=== PATIENT | female | born 1935 | race Asian ===

== ENCOUNTER → 2017-01-03 | Outpatient (CLI) | payer BC ==
[~2017-01-03] MED LIST: ASPCH81X PO; CHOL100010 PO; COEN1CAP7 PO; GLUC1TAB8 PO; MAGN250T22 PO; MULT-506 PO; OMEG10007 PO
== END | disposition home or self-care (01) ==
LOC: C.RDSM 13:03
PROVIDERS: ATTEND Physical Medicine & Rehabilitation
DX: M54.5 Low back pain (principal)

== ENCOUNTER → 2017-01-06 | Outpatient (CLI) | payer BC ==
--- NOTE | 2017-01-06 14:05 | MAMMOGRAPHY REPORT ---
BILATERAL DIGITAL SCREENING MAMMOGRAM WITH CAD: 01/06/2017 CLINICAL HISTORY: Routine screening. Patient has no complaints. TECHNIQUE: Bilateral CC and MLO views were obtained. Current study was also evaluated with a Compute r Aided Detection (CAD) system. COMPARISON: Comparison is made to exams dated: 01/05/2016 mammogram, 01/02/2015 mammogram, 08/03/2013 m ammogram, 02/01/2013 ultrasound, 02/01/2013 mammogram, and 01/21/2013 mammogram - [facility]. BREAST COMPOSITION: The tissue of both breasts is heterogeneously dense, which may obscure small mas ses. FINDINGS: The parenchymal pattern is unchanged. No developing mass, architectural distortion or clus ter of suspicious microcalcifications is seen in either breast. IMPRESSION: ACR BI-RADS CATEGORY 2: BENIGN There is no mammographic evidence of malignancy. A 1 year screening mammogram is recommended. The pa tient will receive written notification of the results. Approximately 10% of breast cancers are not detected with mammography. A negative mammographic report should not delay biopsy if a clinically suggestive mass is present. Alanna Llamas M.D. ay/:01/06/2017 12:02:02 Ceramic Engineer: Zakiya GARCIA(Hitesh)(M), [facility] letter sent: Normal 1/2 BI-RADS Code: ACR BI-RADS Category 2: Benign
== END | disposition home or self-care (01) ==
LOC: C.MAMM 11:26
PROVIDERS: ATTEND Family Medicine
DX: Z12.31 Encounter for screening mammogram for malignant neoplasm of breast (principal)

== ENCOUNTER → 2017-02-27 | Day surgery (SDC) | payer BC ==
[2017-02-20 08:59] VITALS: Ht 157.5 cm; Wt 61.4 kg
[~2017-02-27] VITALS: Ht 157.5 cm; Wt 61.4 kg
[~2017-02-27] MED LIST changes: +IOPAMIDOL INJ 61% 15 ML VIAL ONE; +LIDOCAINE HCL 1% MPF 5 ML VIAL ONE; +SODIUM CHLORIDE 0.9% INJ 10 ML VIAL ONE
[2017-02-27 12:34] VITALS: TEMP 36.6
--- NOTE | 2017-02-27 12:59 | History & Physical Bridge - [place] ---
H&P Re-Evaluation Bridge Note: I have examined the patient, reviewed the History & Physical and in the interval since the performance of the History & Physical I have noted the following changes of clinical significance: No changes noted
--- NOTE | 2017-02-27 13:27 | Discharge Instructions ---
Discharge Instructions Date of Service Feb 27, 2017. Visit Reason for Visit: Lumbar Radiculopathy Discharge Discharge Diagnosis / Problem: left leg pain Discharge Goals Goal(s): Decrease discomfort, Improve function Activity Recommendations Activity Limitations: resume your previous activity Anesthesia . Post Anesthesia Instructions: If you have had General Anesthesia or IV Sedation: * Do not drive today. * Resume driving when surgeon permits. * Do not make important decisions or sign legal documents today. * Call surgeon for: 1. Temperature elevations greater than 101 degrees F. 2. Uncontrollable pain. 3. Excessive bleeding. 4. Persistent nausea and vomiting. 5. Medication intolerance (nausea, vomiting or rash). * For nausea and vomiting use only clear liquids such as: tea, soda, bouillon until nausea subsides, then gradually increase diet as tolerated. * If you have any concerns or questions, call your surgeon's office. If physician is unavailable and it is an emergency, call 911 or go to the nearest emergency room. . Diet Recommendations Recommended Home Diet: no limitations Procedures Procedures Performed: CAUDAL STERIOD INJECTION Pending Studies Studies pending at discharge: no Medical Emergencies . Who to Call and When: Medical Emergencies: If at any time you feel your situation is an emergency, please call 911 immediately. . Non-Emergent Contact Non-Emergency issues call your: Specialist . . "Provider Documentation" section prepared by Jamey Pan. .
[2017-02-27 13:41] VITALS: BP 193/82; PULSE 60; O2SAT 98
--- NOTE | 2017-02-27 14:10 | OPERATIVE REPORT ---
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 POSTOPERATIVE DIAGNOSIS: Same. PROCEDURE: Caudal epidural steroid injection under fluoroscopic guidance. INDICATIONS: The patient is an 81-year-old French female who presents today for an epidural steroid injection. She has not responded to conservative treatments and continues to have radicular pain that is functionally limiting to her. She presents today for an epidural injection and was scheduled for an intralaminar approach. However, she did not stop her aspirin and that will be done via a caudal approach to reduce the risk of an epidural hematoma. PHYSICAL EXAMINATION: GENERAL: Pleasant female seated comfortably in no apparent distress. MUSCULOSKELETAL: She has some sciatic notch sensitivity on the left. Sensation was subjectively increased in the left L5 and S1 dermatomes with negative seated straight leg raises. CONSENT: Verbal and written consent was obtained from the patient. Risks and benefits were reviewed. Risks include but are not limited to epidural abscess and allergic reaction. The patient wishes to proceed. PROCEDURE IN DETAIL: The patient was taken back to the special procedures room of [facility] where she was maintained in a prone position. Backside was cleansed with Betadine x3 and a dry sterile dressing was applied. Fluoroscope was used to identify the sacral hiatus and the overlying skin was anesthetized with 2.5 mL of lidocaine 1% with a 25 gauge 1.5-inch needle. A 25 gauge 3.5-inch needle was placed easily, entering the hiatus and advanced along the sacral canal. She then underwent injection after negative aspiration of 40 mg of Depo-Medrol and 4 mL of preservative free sodium chloride. Injection was well tolerated. DISPOSITION: 1. The patient is taken out into the discharge recovery area, where she will be discharged home once discharge criteria have been met. 2. Follow up in the [facility] office in 2-4 weeks. I attest to the content of the Intraoperative Record and any orders documented therein. Any exception s are noted below.
== END | disposition home or self-care (01) ==
LOC: X.SURG 12:08
PROVIDERS: ATTEND Physical Medicine & Rehabilitation
DX: M99.53 Intervertebral disc stenosis of neural canal of lumbar region (principal); M54.5 Low back pain

== ENCOUNTER 2017-08-27 11:43 | Inpatient (IN) | payer BC, OTHER ==
[~2017-08-27] VITALS: Ht 162.6 cm; Wt 62.1 kg
[~2017-08-27 11:43] MED LIST changes: -IOPAMIDOL INJ 61% 15 ML VIAL ONE; -LIDOCAINE HCL 1% MPF 5 ML VIAL ONE; -SODIUM CHLORIDE 0.9% INJ 10 ML VIAL ONE
[2017-08-27 12:10] LABS: BASO % 0.6 %; BASO ABS # 0.03 K/uL (0-0.2); EOS % 0.8 %; EOS ABS # 0.04 K/uL (0-0.5); HEMATOCRIT 38.3 % (37-47); HEMOGLOBIN 13.3 g/dL (12.0-16.0); IG# 0.01 K/uL (0.00-0.02); LYMPH % 32.4 %; LYMPH ABS # 1.71 K/uL (1.2-3.4); MEAN CELL VOLUME 93.2 fL (80-100); MEAN CORPUSCULAR HEMOGLOBIN 32.4 pg (25-34); MEAN CORPUSCULAR HGB CONC 34.7 g/dl (32-36); MEAN PLATELET VOLUME 10.2 fL (7.4-10.4); MONO % 4.7 %; MONO ABS # 0.25 K/uL (0.11-0.59); NEUT % 61.3 %; NEUT ABS # 3.24 K/uL (1.4-6.5); PLATELET COUNT 145 K/uL (130-400); RED CELL DISTRIBUTION WIDTH SD 44.1 fL (36.4-46.3); WHITE BLOOD COUNT 5.28 K/uL (4.8-10.8)
--- NOTE | 2017-08-27 12:15 | EMERGENCY ROOM VISIT NOTE ---
History Report prepared by Chelsea: Arina Valdes Under the Supervision of: Dr. Eric Wilkes M.D. First contact with patient: 11:53 Chief Complaint: CHEST PAIN Stated Complaint: DIZZINESS, CHEST PAIN, NUMB LEFT SIDE LOW BP Nursing Triage Summary: pt started with back pain last night today pt has pain in back, left arm, left side of chest, left neck pt also dizzy, this am short of breath pt has hx of a fib History of Present Illness The patient is a 82 year old female who presents to the Emergency Room with complaints of an episode of chest pain occurring this morning. She was experiencing upper back pain last night before she went to bed. This morning she woke up and was having chest pain into her back and into her left arm. She also felt dizzy with the pain. She states that this episode started around 9am and eventually resolved on its own. She did not take any medications for her symptoms. She rates her pain as an 8/10 in severity while she was having the pain. She does not currently have any chest pain. She called her cath lab technologist and was advised to come to the ED for further evaluation. The patient states that for the past few days she has been feeling more tired than usual with intermittent upper back pain. She denies rashes, abdominal pain, and any recent falls. She has a history of atrial fibrillation and takes a daily baby aspirin. Source of History: patient Onset: this morning Position: chest Symptom Intensity: 8/10 Timing: other (episode) Modifying Factors (Relieving): other (time) Associated Symptoms: + back pain, No abdominal pain, No rash Note: Pt notes dizziness. Review of Systems See HPI for pertinent positives & negatives. A total of 10 systems reviewed and were otherwise negative. Past Medical & Surgical Medical Problems: (1) Atrial fibrillation (2) Hypothyroidism, unspecified (3) Irritable bowel syndrome (4) Lumbago Family History Non-pertinent due to advanced age. Social History Smoking Status: Never Smoker Marital Status: Housing Status: lives with significant other Current/Historical Medications Scheduled Aspirin (Aspirin Chewable), 81 MG PO QAM Calcium Carbonate-Vitamin D (Calcium), 1 TAB PO DAILY Cholecalciferol (Vitamin D3), 1 TAB PO DAILY Coenzyme Q10 (Ubidecarenone) (Coq10), 1 CAP PO QAM Fish Oil ([place]-3), 1 CAP PO QAM Glucosamine Hydrochloride (Glucosamine), 1 TAB PO QAM Magnesium Oxide (Magnesium), 1 TAB PO QAM Multivitamin (Multivitamin), 1 TAB PO QAM Allergies Coded Allergies: Adhesives (Verified Allergy, Mild, MAKES SKIN SORE, 08/27/17) Atorvastatin (Verified Allergy, Mild, COUGH, 08/27/17) Levothyroxine (Verified Allergy, Mild, GENERIC MADE HER DIZZY, 08/27/17) Physical Exam Vital Signs Date Time Temp Pulse Resp B/P (MAP) Pulse Ox O2 Delivery O2 Flow Rate FiO2 08/27/17 14:31 69 16 124/69 95 Room Air 08/27/17 12:41 74 16 129/71 08/27/17 12:36 75 08/27/17 12:14 97 Room Air 08/27/17 11:52 36.9 72 20 177/95 97 Room Air 08/27/17 11:49 Room Air Physical Exam GENERAL: Patient is well appearing and in no acute distress. EYES: No scleral icterus, unremarkable pupils. ENT: Mucous membranes moist, no nasal congestion. NECK: No masses appreciated, no meningismus, trachea is midline. RESPIRATORY: No dyspnea. Clear to auscultation and equal bilaterally. No wheeze , no rhonchi. CARDIOVASCULAR: Regular rate and rhythm. No murmurs, rubs, gallops appreciated. GASTROINTESTINAL: Abdomen soft, nontender, no peritonitis. Bowel sounds positive. No masses appreciated. BACK: No midline tenderness, no CVA tenderness EXTREMITIES: Normal motion all extremities, no cyanosis, no edema. NEUROLOGIC: Alert and oriented, no acute motor or sensory deficits, no focal weakness, cranial nerves grossly intact. SKIN: No rash, no jaundice, no diaphoresis. Medical Decision & Procedures ER Provider Diagnostic Interpretation: Radiology results and stated below per my review and radiologist interpretation: CHEST ONE VIEW PORTABLE CLINICAL HISTORY: Atypical chest pain, dizziness, left sided numbness. COMPARISON STUDY: 06/06/2014 FINDINGS: The cardiac and mediastinal contours remain stable. There is aortic tortuosity. There are calcified right hilar and paratracheal lymph nodes. Right upper lobe granulomatous calcifications. There is no failure. There is no acute parenchymal consolidation. Slightly prominent basilar markings are likely atelectatic[ IMPRESSION: Old granulomatous changes. No evidence of failure. No evidence of focal pulmonary consolidation Electronically signed by: Aron Jimenez M.D. 08/27/2017 12:17 PM Dictated Date/Time: 08/27/2017 12:16 PM Laboratory Results Test 08/27/17 11:55 Erythrocyte Sedimentation Rate 18 mm/hr (0-21) Prothrombin Time 10.3 SECONDS (9.0-12.0) Prothromb Time International Ratio 1.0 (0.9-1.1) Activated Partial Thromboplast Time 25.2 SECONDS (21.0-31.0) Partial Thromboplastin Ratio 1.0 D-Dimer 300 ug/L FEU (0-500) C-Reactive Protein < 0.29 mg/dl (0-0.29) Laboratory results as reviewed by me. Medications Administered Medications (Trade) Dose Ordered Sig/Mando Route Start Time Stop Time Status Last Admin Dose Admin Aspirin (Aspirin Chew) 324 mg NOW STAT PO 08/27/17 13:30 08/27/17 13:31 DC 08/27/17 14:31 324 MG Sodium Chloride 1,000 ml @ 50 mls/hr Q20H IV 08/27/17 15:03 09/26/17 15:02 08/28/17 13:04 50 MLS/HR ECG Per My Interpretation Indication: chest pain Rate (beats per minute): 73 Rhythm: normal sinus Findings: no acute ischemic change, no ectopy, other (QTC 405) ED Course 1153: The patient was evaluated in room A12B. A complete history and physical exam was performed. 1311: I reassessed the patient at this time. She is feeling better and resting comfortably. I discussed the results and treatment plan with the patient. I answered all pertaining questions that she had. She expressed understanding and verbalized agreement. 1329: I spoke with Dr. Bahman Lemon. We discussed the patient's case. The patient will be evaluated by the [facility] for further management. 1330: Aspirin 324 mg PO Medical Decision Differential: Cardiac Ischemia (STEMI, NSTEMI, Unstable Angina, etc), Aortic Dissection, Arrhythmia, Pulmonary Embolism, Pneumonia, Pneumothorax, MSK, Infectious, Pericarditis/Myocarditis, Esophageal Rupture, Gastrointestinal, amongst other pathologies entertained. 82 yr old female arrives for evaluation of left chest pain that has since resolved. Associated with radiation to other areas of neck, head, arm back. Notes back pain yesterday but seems unlikely this is dissection, especially given ok cxr and pulses. Initial EKG, Trop are unremarkable. Labs otherwise look OK. BP OK here after relaxing, though she notes BPs in 60s at home this morning. Breathing comfortably and in no distress. No further CP while here. She will need to come in for cardiac rule out. I do not feel that PE given no shob nor hypoxia. Medication Reconcilliation Current Medication List: was personally reviewed by me Blood Pressure Screening Patient's blood pressure: Normal blood pressure Consults Time Called: 1321 Consulting Physician: Dr. Bahman Lemon Returned Call: [address] Bahman Lemon. We discussed the patient's case. The patient will be evaluated by the [facility] for further management. Impression Primary Impression: Left sided chest pain Scribe Attestation The scribe's documentation has been prepared under my direction and personally reviewed by me in its entirety. I confirm that the note above accurately reflects all work, treatment, procedures, and medical decision making performed by me. Departure Information Dispostion Being Evaluated By Hospitalist Referrals Chad Cohen M.D. (PCP) Patient Instructions My [facility]
--- NOTE | 2017-08-27 12:18 | DIAGNOSTIC IMAGING REPORT ---
CHEST ONE VIEW PORTABLE CLINICAL HISTORY: Atypical chest pain, dizziness, left sided numbness. COMPARISON STUDY: 06/06/2014 FINDINGS: The cardiac and mediastinal contours remain stable. There is aortic tortuosity. There are calcified right hilar and paratracheal lymph nodes. Right upper lobe granulomatous calcifications. There is no failure. There is no acute parenchymal consolidation. Slightly prominent basilar markings are likely atelectatic[ IMPRESSION: Old granulomatous changes. No evidence of failure. No evidence of focal pulmonary consolidation Electronically signed by: Aron Jimenez M.D. 08/27/2017 12:17 PM Dictated Date/Time: 08/27/2017 12:16 PM
[2017-08-27 12:21] LABS: PTT PATIENT 25.2 SECONDS (21.0-31.0)
[2017-08-27 12:32] LABS: BLOOD UREA NITROGEN 18 mg/dl (7-18); CALCIUM 8.6 mg/dl (8.5-10.1); CARBON DIOXIDE 29 mmol/L (21-32); CREATININE 0.92 mg/dl (0.60-1.20); GLUCOSE 117 mg/dl (70-99); POTASSIUM 3.7 mmol/L (3.5-5.1); SODIUM 140 mmol/L (136-145)
[2017-08-27] MEDS ORDERED: CHOL1000 PO (13:13)
[2017-08-27] MEDS ORDERED: CALC-51 PO (13:13)
[2017-08-27] MEDS ORDERED: ASPIRIN 324 MG CHEW PO STA (13:30)
[2017-08-27] MEDS ORDERED: NITROGLYCERIN 0.4 MG SL PER TAB CHARGE SL PRN (15:15)
[2017-08-27] MEDS ORDERED: POLYETHYLENE (MIRALAX) 17 GM PACK PO PRN (15:15)
[2017-08-27] MEDS ORDERED: MAGNESIUM HYDROXIDE SUSP 30 ML UDC PO PRN (15:15)
[2017-08-27] MEDS ORDERED: ALUMINUM/MAGNESIUM/SIMETH (MAALOX MAX) 30 ML UDC PO PRN (15:15)
[2017-08-27] MEDS ORDERED: ACETAMINOPHEN 325 MG TAB PO PRN (15:15)
[2017-08-27] MEDS ORDERED: ZOLPIDEM TARTRATE 5 MG TAB PO PRN ×2 (15:15)
[2017-08-27] MEDS ORDERED: MoRPHine SULFATE 2 MG/ML CARP IV PRN (15:15)
--- NOTE | 2017-08-27 15:18 | History and Physical ---
History & Physical Date & Time of Service: Aug 27, 2017 at 15:08 Chief Complaint: Dizziness, Chest Pain, Numb Left Side Low Bp Primary Care Physician: Chad Cohen M.D. History of Present Illness Source: patient, family 82-year-old female with past medical history of lumbar DJD, remote history of atrial fibrillation currently on aspirin otherwise healthy. Yesterday patient said that she had some pain in her back her massaged her back and she used some heating pad. Today she woke up from sleep with severe headache and left arm severe pain with slight left-sided chest pain. Her check her pressure when she was having the severe pain and it was only 60/40 with a heart rate of 59. Patient said pain was squeezing in character mainly in the head and left arm and partially in the left side of the chest. Denies any associated symptoms. Denies any focal weakness. Due to the severe pain she felt dizzy. Likely also secondary to the low blood pressure and the bradycardia that was associated with the pain. Patient stated she did not have any problems in her cervical spine before. Fatigue she had a lot of problems in her lumbar spine requiring steroids injection 2-3 times every. Patient does not have high blood pressure or diabetes No any other chronic conditions Remote history of atrial fibrillation she sees Dr. nunez for that who offered her to take a medicine for that but she told him that she will think about. Currently only taking aspirin and fish oil She is currently pain-free Past Medical/Surgical History Medical Problems: (1) Atrial fibrillation (2) Hypothyroidism, unspecified (3) Irritable bowel syndrome (4) Lumbago Social History Smoking Status: Never Smoker Marital Status: Allergies Coded Allergies: Adhesives (Verified Allergy, Mild, MAKES SKIN SORE, 08/27/17) Atorvastatin (Verified Allergy, Mild, COUGH, 08/27/17) Levothyroxine (Verified Allergy, Mild, GENERIC MADE HER DIZZY, 08/27/17) Home Medications Scheduled Aspirin (Aspirin Chewable), 81 MG PO QAM Calcium Carbonate-Vitamin D (Calcium), 1 TAB PO DAILY Cholecalciferol (Vitamin D3), 1 TAB PO DAILY Coenzyme Q10 (Ubidecarenone) (Coq10), 1 CAP PO QAM Fish Oil ([place]-3), 1 CAP PO QAM Glucosamine Hydrochloride (Glucosamine), 1 TAB PO QAM Magnesium Oxide (Magnesium), 1 TAB PO QAM Multivitamin (Multivitamin), 1 TAB PO QAM Review of Systems Review of system Constitutional: No fever / no chills / no sweats / no weakness / no fatigue Eyes: no blurring of vision / no eye pain / no discharge / no redness ENT: no hearing loss / no epistaxis /no swallowing problems Respiratory: no cough / no wheezing / no SOB / no hemoptysis Cardiovascular: Left-sided chest pain that was associated with a severe headache and left arm pain/ no lower extremity edema / no palpitation Abdomen: no pain / no nausea / no vomiting / no constipation Musculoskeletal: no joint pain / no muscle pain / no joint swelling Genitourinary: no dysuria / no incontinence / no urinary retention Neurologic: no focal weakness / no numbness/tingling / no ataxia, positive for severe headache with left arm pain 10 out of 10 Psychiatric: no depression symptoms / no anxiety / no insomnia Endocrine: no excessive thirst / no excessive urination Hematologic: no abnormal bleeding / no bruising / no LN swelling Skin: No rash / no pallor Physical Exam Vital Signs Date Time Temp Pulse Resp B/P (MAP) Pulse Ox O2 Delivery O2 Flow Rate FiO2 08/27/17 14:31 69 16 124/69 95 Room Air 08/27/17 12:41 74 16 129/71 08/27/17 12:36 75 08/27/17 12:14 97 Room Air 08/27/17 11:52 36.9 72 20 177/95 97 Room Air 08/27/17 11:49 Room Air Physical examination General patient appears to be comfortable, not in acute distress HEENT: Atraumatic , normocephalic /no jaundice /no pallor /anicteric /no dry mucous membrane /normal external ear inspection Neck: Supple /no swelling /central trach Heart: S1/S2 normal/regular rate and rhythm/no gallop /no rub /no murmur Lungs: Clear to auscultation bilaterally/normal chest with expansion/no rhonchi/ no rales/no wheezing/no use of accessory muscles of respiration Abdomen: Soft/nontender/no guarding/no rebound/no organomegaly/no pulsatile mass Musculoskeletal: No swelling/no edema/no tenderness/normal range of motion Neuro exam: Awake alert oriented 3/cranial nerves II through XII appear to be intact/sensation intact/moves all extremities/no abnormal movements Psychiatric evaluation: No depressed mood/normal affect Skin: No rash on exposed skin area/no erythema Extremity: Normal pulse/no pitting edema/no clubbing or cyanosis Endocrine/lymphatic: No obvious lymphadenopathy /no lymphedema Diagnostics Laboratory Results Results Past 24 Hours Test 08/27/17 11:55 Range/Units White Blood Count 5.28 4.8-10.8 K/uL Red Blood Count 4.11 4.2-5.4 M/uL Hemoglobin 13.3 12.0-16.0 g/dL Hematocrit 38.3 37-47 % Mean Corpuscular Volume 93.2 80-100 fL Mean Corpuscular Hemoglobin 32.4 25-34 pg Mean Corpuscular Hemoglobin Concent 34.7 32-36 g/dl Platelet Count 145 130-400 K/uL Mean Platelet Volume 10.2 7.4-10.4 fL Neutrophils (%) (Auto) 61.3 % Lymphocytes (%) (Auto) 32.4 % Monocytes (%) (Auto) 4.7 % Eosinophils (%) (Auto) 0.8 % Basophils (%) (Auto) 0.6 % Neutrophils # (Auto) 3.24 1.4-6.5 K/uL Lymphocytes # (Auto) 1.71 1.2-3.4 K/uL Monocytes # (Auto) 0.25 0.11-0.59 K/uL Eosinophils # (Auto) 0.04 0-0.5 K/uL Basophils # (Auto) 0.03 0-0.2 K/uL RDW Standard Deviation 44.1 36.4-46.3 fL RDW Coefficient of Variation 13.0 11.5-14.5 % Immature Granulocyte % (Auto) 0.2 % Immature Granulocyte # (Auto) 0.01 0.00-0.02 K/uL Prothrombin Time 10.3 9.0-12.0 SECONDS Prothromb Time International Ratio 1.0 0.9-1.1 Activated Partial Thromboplast Time 25.2 21.0-31.0 SECONDS Partial Thromboplastin Ratio 1.0 Sodium Level 140 136-145 mmol/L Potassium Level 3.7 3.5-5.1 mmol/L Chloride Level 107 98-107 mmol/L Carbon Dioxide Level 29 21-32 mmol/L Anion Gap 4.0 3-11 mmol/L Blood Urea Nitrogen 18 7-18 mg/dl Creatinine 0.92 0.60-1.20 mg/dl Est Creatinine Clear Calc Drug Dose 41.4 ml/min Estimated GFR () 67.7 Estimated GFR (Non- 58.4 BUN/Creatinine Ratio 19.5 10-20 Random Glucose 117 70-99 mg/dl Calcium Level 8.6 8.5-10.1 mg/dl Troponin I < 0.015 0-0.045 ng/ml Impression Assessment and Plan 82-year-old female with past medical history of atrial fibrillation currently only on aspirin presented to the ED with sudden onset severe headache, left arm left shoulder pain and to less extent left sided of the chest pain, while she is having the pain she was also hypotensive and bradycardic, possible vagal shock, currently she is chest pain.. Assessment Chest pain rule out ACS An episode of hypotension and bradycardia likely vasovagal Severe headache and left arm pain, possible cervical stenosis Lumbar DJD disease status post multiple injection Remote history of atrial fibrillation currently on aspirin plan: The description of her pain and the association with severe headache and left arm pain more suspicious for cervical spine origin, but giving the fact that she had chest pain associated with it will prominent workup to rule out any cardiac reason for the chest pain She was instructed to see her orthopedic doctor as an outpatient for MRI and full workup for her cervical origin of the pain and the headache Also will workup her headache with sed rate and CRP rule out any vasculitis We will order a d-dimer to rule out any aortic dissection/PE admit to telemetry obtain serial cardiac enz NTG SL/topical prn CP consult excel expert as needed Order stress test in a.m. pain management Check hemoglobin A1c/lipids to stratify patient risk factors repeat EKG prn chest pain Resuscitation Status VTE Prophylaxis Will order VTE Prophylaxis: Yes
[2017-08-27 16:00] VITALS: BP 124/73; PULSE 70; TEMP 36.2; O2SAT 95
[2017-08-27] MEDS ORDERED: IV FLUIDS COMPLETED PRN (16:00)
[2017-08-27 16:10] VITALS: Ht 162.6 cm; Wt 62.1 kg
[2017-08-27] MEDS ORDERED: ENOXAPARIN 40 MG/0.4 ML SYR SC SCH (17:00)
[2017-08-27] MEDS: SODIUM CHLORIDE 0.9% 1000ML 1,000 ML IV SCH (17:03)
[2017-08-27 19:19] VITALS: BP 125/66; PULSE 71; TEMP 36.9; O2SAT 95
[2017-08-27 23:59] VITALS: BP 130/75; PULSE 59; TEMP 36.7; O2SAT 95
[2017-08-28] VITALS (15 sets, daily range): BP systolic 113–187; BP diastolic 52–82; PULSE 54–73; TEMP 36.3–36.9; O2SAT 93–98
[2017-08-28 03:10] LABS: BASO % 0.5 %; BASO ABS # 0.03 K/uL (0-0.2); EOS % 1.6 %; HEMATOCRIT 34.4 % (37-47); HEMOGLOBIN 11.9 g/dL (12.0-16.0); IG# 0.01 K/uL (0.00-0.02); LYMPH % 45.3 %; LYMPH ABS # 2.92 K/uL (1.2-3.4); MEAN CORPUSCULAR HEMOGLOBIN 32.2 pg (25-34); MEAN CORPUSCULAR HGB CONC 34.6 g/dl (32-36); MEAN PLATELET VOLUME 9.6 fL (7.4-10.4); MONO % 7.1 %; MONO ABS # 0.46 K/uL (0.11-0.59); NEUT % 45.3 %; NEUT ABS # 2.93 K/uL (1.4-6.5); PLATELET COUNT 137 K/uL (130-400); RED CELL DISTRIBUTION WIDTH CV 12.9 % (11.5-14.5); RED CELL DISTRIBUTION WIDTH SD 43.6 fL (36.4-46.3); WHITE BLOOD COUNT 6.45 K/uL (4.8-10.8)
[2017-08-28 03:47] LABS: ALBUMIN 2.8 gm/dl (3.4-5.0); CALCIUM 7.9 mg/dl (8.5-10.1); CREATININE 0.96 mg/dl (0.60-1.20); POTASSIUM 3.8 mmol/L (3.5-5.1)
[2017-08-28 06:51] LABS: HEMOGLOBIN A1C 5.7 % (4.5-5.6)
[2017-08-28] MEDS: ASPIRIN 81 MG ECTAB PO SCH (09:19)
[2017-08-28] MEDS: OMEGA-3 (PURIFIED FISH OIL) 1 GM CAP PO SCH (09:19)
[2017-08-28] MEDS: MULTIVITAMIN TAB PO SCH (09:19)
[2017-08-28] MEDS ORDERED: HydrALAZINE HCL 20 MG/ML VIAL IV. PRN (13:00)
--- NOTE | 2017-08-28 13:00 | Pre Sedation Assessment ---
Pre Sedation Assessment General Date of Sedation: Aug 28, 2017. Vital Signs Past 12 Hours Date Time Temp Pulse Resp B/P (MAP) Pulse Ox O2 Delivery O2 Flow Rate FiO2 08/28/17 12:11 36.6 63 16 187/79 (115) 97 Room Air 08/28/17 08:33 93 Room Air 08/28/17 08:00 93 Room Air 08/28/17 08:00 93 Room Air 08/28/17 07:39 93 Room Air 08/28/17 07:38 36.3 64 16 157/72 (100) 93 Room Air 08/28/17 04:32 36.9 54 16 145/82 (103) 96 Room Air 08/28/17 04:00 Room Air Review Cardiovascular: regular rate, rhythm Lungs: lungs clear Pre-Sedation Airway Assessment Smoking Status: Never Smoker Oral Cavity: WNL Mallampati Classification: Class III ASA Classification: Class III NPO Status Date of Last Intake of Fluids: Aug 27, 2017 Date of Last Intake of Solids: Aug 27, 2017 Procedure Planning Contraindications for Sedation: None Current Medications Reviewed: Yes Notes The planned sedation has been discussed with the patient. Informed Consent was obtained. I have identified the patient, determined the appropriateness of sedation and have assessed the patient immediately prior to the procedure. All medicine(s) and interventions are by my order.
--- NOTE | 2017-08-28 13:00 | ECHOCARDIOGRAM REPORT ---
*NOTICE TO RECEIVING CONSTITUTION PARTY AGENCY This information is strictly Confidential and protected under [place] law. [place] law prohibits you from making any further disclosure of this information unless further disclosure is expressly permitted by the written consent of the person to whom it pertains or is authorized by law. A general authorization for the release of medical or other information is not sufficient for this purpose. Hospital accepts no responsibility if the information is made available to any other person, INCLUDING THE PATIENT. Interpretation Summary * Name: SUZE MEJIA Study Date: 08/28/2017 11:14 AM BP: 157/72 mmHg * Patient Location: [facility] HR: 64 * : 1935 (M/d/yyyy) Gender: Female Height: 64 in * Age: 82 yrs Ethnicity: Weight: 137 lb * Ordering Physician: Vasiliy Rdz * Referring Physician: Self, Referred * Performed By: Estrella Gupta RDCS * * Reason For Study: Elevated troponin * BSA: 1.7 m2 * -- Conclusions -- * 1. Normal left ventricular size with hyperdynamic systolic function. EF 65-70%. No regional wall motion abnormalities. Mild concentric left ventricular hypertrophy. Type 1 diastolic dysfunction. * 2. Aortic valve sclerosis mild, without significant aortic valvular stenosis. * 3. There is mild mitral regurgitation. * 4. Normal estimated right ventricular systolic pressure. * 5. No prior study available for comparison. Procedure Details * A complete two-dimensional transthoracic echocardiogram was performed (2D, M-mode, Doppler and color flow Doppler). Left Ventricle * Normal left ventricular size with hyperdynamic systolic function. EF 65-70%. No regional wall motion abnormalities. Mild concentric left ventricular hypertrophy. Type 1 diastolic dysfunction. Right Ventricle * The right ventricle is normal in size and function. * The right ventricular systolic function is normal as assessed by tricuspid annular plane systolic excursion (TAPSE) (normal >1.5 cm). Atria * The left atrial size is normal. * Right atrial size is normal. * There is no evidence of atrial septal defect, but resolution does not allow assessment for a patent foramen ovale. Mitral Valve * There is mild mitral annular calcification. * There is no mitral valve stenosis. * There is mild mitral regurgitation. Tricuspid Valve * The tricuspid valve is not well visualized, but is grossly normal. * There is no tricuspid stenosis. * There is trace tricuspid regurgitation. Aortic Valve * The aortic valve is trileaflet. * Aortic valve sclerosis mild, without significant aortic valvular stenosis. * No hemodynamically significant valvular aortic stenosis. * Trace aortic regurgitation. Pulmonic Valve * The pulmonary valve is inadequately visualized, but the Doppler data is adequate for interpretation. * There is no pulmonic valvular stenosis. * Mild pulmonic valvular regurgitation. Great Vessels * The aortic root is normal size. * Ascending aorta of normal dimension * Aortic arch of normal dimension. * Normal pulmonary venous flow pattern. Pericardium/Pleural * There is no pericardial effusion. Great Vessels * IVC normal in size. Reduced inspiratory collapse. MMode 2D Measurements and Calculations IVSd 1.2 cm LVIDd 3.5 cm LVIDs 2.1 cm LVPWd 1.2 cm IVS/LVPW 1.0 FS 39.4 % EDV(Teich) 49.8 ml ESV(Teich) 14.5 ml EF(Teich) 70.9 % EDV(cubed) 41.8 ml ESV(cubed) 9.3 ml EF(cubed) 77.7 % LV mass(C)d 138.2 grams LV mass(C)dI 83.0 grams/m\S\2 SV(Teich) 35.3 ml SI(Teich) 21.2 ml/m\S\2 SV(cubed) 32.5 ml SI(cubed) 19.5 ml/m\S\2 Ao root diam 3.4 cm Ao root area 9.1 cm\S\2 ACS 1.4 cm LA dimension 3.2 cm asc Aorta Diam 2.5 cm LA/Ao 0.93 LVOT diam 2.0 cm LVOT area 3.2 cm\S\2 LVAd ap4 16.2 cm\S\2 LVLd ap4 5.6 cm EDV(MOD-sp4) 38.5 ml EDV(sp4-el) 40.2 ml LVAs ap4 8.1 cm\S\2 LVLs ap4 4.8 cm ESV(MOD-sp4) 11.1 ml ESV(sp4-el) 11.7 ml EF(MOD-sp4) 71.2 % EF(sp4-el) 71.0 % LVAd ap2 13.5 cm\S\2 LVLd ap2 5.5 cm EDV(MOD-sp2) 26.5 ml EDV(sp2-el) 28.0 ml LVAs ap2 7.1 cm\S\2 LVLs ap2 4.7 cm ESV(MOD-sp2) 9.0 ml ESV(sp2-el) 9.1 ml EF(MOD-sp2) 66.1 % EF(sp2-el) 67.4 % LVLd %diff -1.36 % EDV(MOD-bp) 31.6 ml LVLs %diff -1.55 % ESV(MOD-bp) 10.1 ml EF(MOD-bp) 68.1 % SV(MOD-sp4) 27.4 ml SI(MOD-sp4) 16.4 ml/m\S\2 SV(MOD-sp2) 17.5 ml SI(MOD-sp2) 10.5 ml/m\S\2 SV(MOD-bp) 21.5 ml SI(MOD-bp) 12.9 ml/m\S\2 SV(sp4-el) 28.5 ml SI(sp4-el) 17.1 ml/m\S\2 SV(sp2-el) 18.9 ml SI(sp2-el) 11.3 ml/m\S\2 Doppler Measurements and Calculations MV E max roberto carlos 85.7 cm/sec MV A max roberto carlos 98.1 cm/sec MV E/A 0.87 MV dec time 0.16 sec Ao V2 max 122.4 cm/sec Ao max PG 6.0 mmHg Ao max PG (full) 1.4 mmHg TABITHA(V,A) 2.8 cm\S\2 TABITHA(V,D) 2.8 cm\S\2 AI max roberto carlos 421.4 cm/sec AI max PG 71.0 mmHg AI dec slope 136.5 cm/sec\S\2 AI P1/2t 903.9 msec LV V1 max PG 4.6 mmHg LV V1 max 106.8 cm/sec PA V2 max 69.9 cm/sec PA max PG 2.0 mmHg PA acc slope 470.2 cm/sec\S\2 PA acc time 0.13 sec PI max roberto carlos 171.7 cm/sec PI max PG 11.8 mmHg PI dec slope 155.0 cm/sec\S\2 PI P1/2t 324.5 msec TR max roberto carlos 183.8 cm/sec RVSP(TR) 21.5 mmHg RAP systole 8.0 mmHg PA pr(Accel) 22.8 mmHg
[2017-08-28] MEDS: SODIUM CHLORIDE 0.9% 1000ML 1,000 ML IV SCH (13:04)
--- NOTE | 2017-08-28 13:34 | Hospitalist Progress Note ---
Hospitalist Progress Note Date of Service Aug 28, 2017. (Payton Raines CRNP) Subjective Pt evaluation today including: conversation w/ patient, physical exam, chart review, lab review, review of inpatient medication list Voiding: no voiding problems Ms. Addison is not having any symptoms today, she feels that she is at her baseline self. ROS Constitutional: no chills, aches, sweats or fever Respiratory: no sob,cough, sputum, or wheezing Cardiac: no chest pain, palpitations, edema, orthopnea or lightheadedness GI: no abdominal pain, nausea, vomiting, diarrhea or constipation : no dysuria or hesitancy Extremities: no joint pain or weakness Skin: no rash All other systems reviewed and negative (Payton Raines CRNP) Medications Medications Administered Medications (Trade) Dose Ordered Sig/Mando Route Start Time Stop Time Status Last Admin Dose Admin Aspirin (Aspirin Chew) 324 mg NOW STAT PO 08/27/17 13:30 08/27/17 13:31 DC 08/27/17 14:31 324 MG Aspirin (Ecotrin Tab) 81 mg QAM PO 08/28/17 09:00 09/27/17 08:59 08/28/17 09:19 81 MG Fish Oil (Buhler-3 (Purified Fish Oil) Cap) 1 gm QAM PO 08/28/17 09:00 09/27/17 08:59 08/28/17 09:19 1 GM Multivitamins (Multivitamin Tab) 1 tab QAM PO 08/28/17 09:00 09/27/17 08:59 08/28/17 09:19 1 TAB Enoxaparin Sodium (Lovenox Inj) 40 mg Q24H SC 08/27/17 17:00 09/26/17 16:59 08/27/17 17:01 40 MG Sodium Chloride 1,000 ml @ 50 mls/hr Q20H IV 08/27/17 15:03 09/26/17 15:02 08/28/17 13:04 50 MLS/HR (Payton Raines CRNP) Objective Vital Signs Date Time Temp Pulse Resp B/P (MAP) Pulse Ox O2 Delivery O2 Flow Rate FiO2 08/28/17 12:11 36.6 63 16 187/79 (115) 97 Room Air 3/22/18 08:33 93 Room Air 08/28/17 08:00 93 Room Air 08/28/17 08:00 93 Room Air 08/28/17 07:39 93 Room Air 08/28/17 07:38 36.3 64 16 157/72 (100) 93 Room Air 08/28/17 04:32 36.9 54 16 145/82 (103) 96 Room Air 08/28/17 04:00 Room Air 08/28/17 00:00 Room Air 08/27/17 23:59 36.7 59 16 130/75 (93) 95 Room Air 08/27/17 20:00 Room Air 08/27/17 19:19 36.9 71 18 125/66 (85) 95 Room Air 08/27/17 16:10 Room Air 08/27/17 16:00 36.2 70 16 124/73 (90) 95 Room Air 08/27/17 15:15 65 18 145/73 95 Room Air 08/27/17 14:31 69 16 124/69 95 Room Air (Payton Raines CRNP) Physical Exam Notes: General: no distress Eyes: normal inspection, PERLL Respiratory: chest non tender, clear to auscultation, normal breath sounds, no respiratory distress, no accessory muscle use Cardiac: regular rate and rhythm, no rub or gallop, no murmur, no edema, no jvd GI/: active bowel sounds, no abd pain or tenderness, soft, non distended Extremities: normal range of motion, normal strength, non tender Neuro/Psych: alert and oriented x 3, normal mood and affect Skin: normal color, dry (Payton Raines CRNP) Laboratory Results Last 24 Hours Test 08/27/17 21:17 08/28/17 02:58 08/28/17 09:46 Troponin I 0.180 ng/ml 0.145 ng/ml 0.112 ng/ml White Blood Count 6.45 K/uL Red Blood Count 3.70 M/uL Hemoglobin 11.9 g/dL Hematocrit 34.4 % Mean Corpuscular Volume 93.0 fL Mean Corpuscular Hemoglobin 32.2 pg Mean Corpuscular Hemoglobin Concent 34.6 g/dl Platelet Count 137 K/uL Mean Platelet Volume 9.6 fL Neutrophils (%) (Auto) 45.3 % Lymphocytes (%) (Auto) 45.3 % Monocytes (%) (Auto) 7.1 % Eosinophils (%) (Auto) 1.6 % Basophils (%) (Auto) 0.5 % Neutrophils # (Auto) 2.93 K/uL Lymphocytes # (Auto) 2.92 K/uL Monocytes # (Auto) 0.46 K/uL Eosinophils # (Auto) 0.10 K/uL Basophils # (Auto) 0.03 K/uL RDW Standard Deviation 43.6 fL RDW Coefficient of Variation 12.9 % Immature Granulocyte % (Auto) 0.2 % Immature Granulocyte # (Auto) 0.01 K/uL Sodium Level 141 mmol/L Potassium Level 3.8 mmol/L Chloride Level 109 mmol/L Carbon Dioxide Level 27 mmol/L Anion Gap 5.0 mmol/L Blood Urea Nitrogen 22 mg/dl Creatinine 0.96 mg/dl Est Creatinine Clear Calc Drug Dose 39.7 ml/min Estimated GFR () 64.3 Estimated GFR (Non- 55.5 BUN/Creatinine Ratio 22.8 Random Glucose 89 mg/dl Estimated Average Glucose 117 mg/dl Hemoglobin A1c 5.7 % Calcium Level 7.9 mg/dl Magnesium Level 2.3 mg/dl Total Bilirubin 0.5 mg/dl Aspartate Amino Transf (AST/SGOT) 19 U/L Alanine Aminotransferase (ALT/SGPT) 23 U/L Alkaline Phosphatase 73 U/L Total Protein 6.0 gm/dl Albumin 2.8 gm/dl Globulin 3.2 gm/dl Albumin/Globulin Ratio 0.9 Triglycerides Level 92 mg/dl Cholesterol Level 172 mg/dl HDL Cholesterol 44 mg/dl LDL Cholesterol, Calculated 110 mg/dl VLDL Cholesterol, Calculated 18 mg/dl Cholesterol/HDL Ratio 3.9 (Payton Raines, NORMA) Assessment and Plan Ms. Addison is an 82 year old woman here for chest pain Left chest pain, elevated troponin - patient had no events on telemetry over night or today - Troponins peaked at 0.18 and trended down - D - dimer wnl, sed rate 18 - Echo showed EF 65% and type I diastolic dysfunction - for cath this afternoon - consulted cardiology - A1c 5.7, lipids wnl - Continue ASA, prn morphine, ntg HTN - patient is hypertensive today - prn hydralazine - may need to start antihypertensive if hypertension persistent Hx of A.fib - no a. fib on monitor, patient sees Dr. Galvez outpatient, does not take anticoagulation or antidysrhythmic DVT proph: enoxaprin, scds Full code (Payton Raines, NORMA) Reviewed: Pt Seen/Exam by Me (Josefa Caceres MD) History [employer] [employer] supervision Note: I interviewed and examined the patient. Discussed with NORMA Raines and agree with findings and plan as documented in the note. Any exceptions or clarifications are listed here: Patient had cardiac catheterization today with a REYNA placed in the diagonal. She continues to have left-sided neck pain radiating down the left arm since the catheterization. It is an 8 out of 10 in severity. As per nursing staff, the sulfur chloride operator has been by and repeated ECG and had no changes in management at this time. Vitals reviewed, normal sinus rhythm on telemetry Gen: AAOx3, NAD HEENT: anicteric sclerae, EOMI CV: RRR no mgr nl S1S2 Pulm: CTAB no wcr Abd: +BS soft NT ND no masses or hernias Ext: no edema, 2+ DP pulses Skin: no rashes, warm/dry Neuro: full strength throughout Echo with grade 1 diastolic dysfunction, preserved EF, no wall motion abnormalities, mild mitral regurgitation 82-year-old female with a history of PAF, HTN, here with unstable angina and NSTEMI, now status post REYNA to the proximal diagonal and found to have severe CAD on catheterization. With persistent left-sided neck and arm pain after the cath. -Give morphine 2 mg IV now -Continue dual antiplatelet therapy with aspirin and Plavix, high intensity statin with Crestor given her history of allergy to atorvastatin, ARB -Is not currently on a [id number] should be-will discuss with cardiology -Monitor for arrhythmias on telemetry overnight Documented By: Josefa Caceres (Josefa Caceres MD)
[2017-08-28] MEDS ORDERED: HEPARIN SOD (PORCINE) 1000 UNIT/ML 10 ML VIAL ONE (15:06)
[2017-08-28] MEDS ORDERED: NITROGLYCERIN/D5W 100MCG/ML 20ML SYR ONE (15:06)
[2017-08-28] MEDS ORDERED: FENTANYL CITRATE INJ 50 MCG/1 ML 2 ML VIAL ONE ×2 (15:06→16:56)
[2017-08-28] MEDS ORDERED: MIDAZOLAM HCL 1 MG/ML 2ML VIAL ONE (15:06)
[2017-08-28] MEDS ORDERED: NiCARDipine HCL INJ 2.5 MG/ML 10 ML AMP ONE (15:06)
[2017-08-28] MEDS ORDERED: LIDOCAINE HCL 1% 20 ML VIAL ONE (15:07)
--- NOTE | 2017-08-28 15:13 | CARDIOLOGY CONSULTATION ---
DATE OF CONSULTATION: 08/28/2017 PRIMARY CARE PHYSICIAN: Chad Cohen MD ATTENDING PHYSICIAN: Precious Lemon MD CONSULTATION: James Galvez MD HISTORY OF PRESENT ILLNESS: The patient is an 82-year-old woman, well known to me. She has a longstanding history of paroxysmal atrial fibrillation. She has refused anticoagulation therapy for her atrial fibrillation. She was in her usual state of health until the night of August 26 to August 27. She states that she was having episodes of an aching tight sensation in her mid to upper back and posterior aspect of her neck. This occurred at rest. Yesterday morning on August 27 while at rest, she had a severe worsening of the intensity of the discomfort. This lasted for approximately 1 hour. She had a severe sensation of chest tightness and pressure, midscapular pressure and tightness. Radiation of discomfort into her left arm. No associated nausea or diaphoresis. No associated dyspnea. She did have lightheadedness. Her blood pressure was checked by her and it was reported to be 60/40 with a heart rate of 59. She had contacted the [facility] office regarding these symptoms. She was told to go to the Emergency Department emergently. She states that since admission, she has had no further complaints of back or chest discomfort. No neck discomfort. No further lightheadedness. She does have chronic right shoulder and right arm pain. She states that this is unchanged. Prior workup for this has been unremarkable. The patient has a longstanding history of paroxysmal atrial fibrillation. In the past, she was treated with amiodarone therapy. This was discontinued because of double vision. In the past when she was on beta justus therapy, she had dyspnea. This was with atenolol. On diltiazem, she had pruritus and a rash. Despite an elevated [id number] score of 3, the patient has refused anticoagulation therapy. The patient states that prior to these symptoms developing on August 26, she had been in her normal state of health. She was not experiencing any exertionally precipitated chest pain. Stable exercise tolerance and stamina. No dyspnea at rest or with her normal activities. No orthopnea or PND. Occasional dependent edema of her lower legs and ankles at the end of the day. Resolution with elevation of her legs overnight. She does have an increase in peripheral edema with increased sodium consumption. Occasional palpitations lasting no more than 10 seconds. No associated symptoms with them. No orthopnea or PND. No lightheadedness or syncope. PAST MEDICAL HISTORY: 1. Paroxysmal atrial fibrillation. 2. Dyslipidemia. In the past, this was treated with statin therapy. She subsequently discontinued it. No record of adverse reaction to it. 3. Chronic right shoulder and arm pain. 4. Episode in 2000 of dysarthria. She reported no weakness of her facial muscles or weakness of her extremities. This occurred while she was vacationing in [place]. She subsequently underwent carotid ultrasound and MRI of her brain when she returned to [place]. The MRI of the brain was unremarkable. Carotid ultrasound revealed no evidence of any hemodynamically significant stenoses. 5. Stress echocardiogram in May 2016 negative for evidence of myocardial ischemia at 73% maximum predicted heart rate. Normal resting biventricular systolic function. Mild concentric LVH. Type 1 LV diastolic dysfunction. Mild aortic and pulmonic regurgitation. Trace mitral regurgitation. 6. History of hypothyroidism. 7. History of benign colon polyps. 8. History of uterine leiomyoma. 9. History of asthma. PAST SURGICAL HISTORY: 1. Status post appendectomy. 2. Status post ear surgery. 3. Status post tonsillectomy with adenoidectomy. FAMILY HISTORY: She states that one of her sisters underwent CABG surgery. ALLERGIES AND ADVERSE DRUG REACTIONS: AMIODARONE, ATENOLOL, DILTIAZEM, AND LISINOPRIL. IN THE EMERGENCY DEPARTMENT, SHE REPORTED THAT SHE HAS HAD ADVERSE REACTION TO LEVOFLOXACIN MANIFESTED BY MAKING HER DIZZY. SHE ALSO REPORTED THAT SHE HAD A MILD COUGH ON ATORVASTATIN. These medications were not listed as having adverse reactions or allergies on office records. MEDICATIONS: At time of admission were aspirin 81 mg daily, MiraLax as needed, and multivitamin 1 daily. SOCIAL HISTORY: The patient is and lives with her . She does not smoke cigarettes. She does not drink alcohol. She has never smoked cigarettes. REVIEW OF SYSTEMS: 1. No pulmonary complaints. 2. No new or acute neurologic type complaints. 3. No claudication type complaints. 4. No bleeding complaints. 5. No pulmonary, GI, or urinary complaints. PHYSICAL EXAMINATION: GENERAL: The patient is lying in her bed. No distress. VITAL SIGNS: This morning with oral temperature 36.3, pulse 64, blood pressure 157/72, and pulse oximetry on room air 93%. Monitor history reveals sinus rhythm. Monitor history reviewed by me. EYES: Pupils equal and round. Anicteric. Conjunctivae normal. NECK: No jugular venous distension. Carotids 2/2 bilaterally. Normal upstroke. No bruits. LUNGS: Normal respiratory effort. Clear. No rales or wheezes. HEART: PMI normal. No lifts or heaves. Regular rate and rhythm. S1 and S2 normal. No gallop or rub. 1/6 systolic murmur in the left lower sternal border. ABDOMEN: Soft. Nontender. No palpable masses or organomegaly. No bruits. Normal bowel sounds. EXTREMITIES: No pretibial edema. No cyanosis or clubbing. PULSES: Radial, dorsalis pedis, and posterior tibial pulses palpable bilaterally. NEUROLOGICAL: Alert and oriented x3. Motor grossly intact. PSYCHIATRIC: Affect normal. DATA: Electrocardiogram yesterday reviewed by me. Normal sinus rhythm, nonspecific ST and T wave abnormalities. Echocardiogram report from today states that she has normal LV systolic function and wall motion. Mild concentric LVH. Type 1 LV diastolic dysfunction. Mild mitral regurgitation. Chest x-ray performed yesterday revealed no evidence of heart failure or infiltrate. Troponin I have been less than 0.015, 0.180, 0.145, and 0.112. Metabolic profile today with sodium 141, potassium 3.8, chloride 109, carbon dioxide 27, BUN 22, creatinine 0.96, and random glucose 89. Magnesium 2.3. AST and ALT normal. Lipid profile with triglycerides 92, total cholesterol 172, calculated LDL 110, and HDL 44. Hemoglobin A1c 5.7. ASSESSMENT: 1. Prolonged episode yesterday of upper back, chest, and upper left arm discomfort. This occurred at rest. It was associated with documentation of a low blood pressure. Her blood pressure subsequently improved. Since admission, no further such symptoms. She was not experiencing any of these type of symptoms with exertion recently. She does have chronic right shoulder and arm discomfort. She states that these symptoms were completely different than her previous symptoms. The troponin I's are mildly elevated. Initial troponin I was normal. Based on her description of back, chest, and arm discomfort and elevated troponin I's, I have to consider this an acute coronary syndrome. Small non-ST elevation myocardial infarction. Electrocardiogram with nonspecific ST and T wave abnormalities. Echocardiogram today with normal LV systolic function and wall motion. Would not expect any new wall motion abnormalities based on these minimal troponin elevations. 2. Coronary artery disease risk factors include family history of coronary artery disease and personal history of dyslipidemia. Although she had no prior history of diabetes mellitus, her hemoglobin A1c on this admission is mildly elevated. She also has evidence of transient elevations in her blood pressure on this admission. No prior history of hypertension. 3. History of paroxysmal atrial fibrillation. The patient has declined anticoagulation therapy. In the past, she had told me that she knows when she is in sustained atrial fibrillation. She has had no sustained palpitations for many years. 4. No signs or symptoms of congestive heart failure. 5. Remote history in 2010 of transient dysarthria. Subsequent MRI scan of her brain when she returned to [facility] revealed no abnormality to account for this symptom. Since then, no further such neurologic complaints. 6. Dyslipidemia. The patient had been on atorvastatin in the past. She discontinued this because she felt that it caused her to have a cough. RECOMMENDATIONS AND PLAN: 1. In light of the presumed acute coronary syndrome and non-ST elevation myocardial infarction, it has been recommended to the patient by me that she undergo cardiac catheterization. The alternatives undergoing cardiac catheterization such as stress testing were extensively discussed with she and her this morning. This was by me. The procedure, benefits, and risk of cardiac catheterization and possible coronary intervention were extensively discussed with them. The alternatives, benefits, and risk of coronary intervention were also extensively discussed with them by me. She agrees to undergo the catheterization procedure and possible coronary intervention if indicated. She is aware of the nature of the [facility] PCI program of offsite surgical backup. 2. Certainly, if she has coronary artery disease, she should be on a statin for her dyslipidemia. Await results of the catheterization. 3. As stated above, the patient has declined anticoagulation therapy for her paroxysmal atrial fibrillation. The increased risk of stroke from paroxysmal atrial fibrillation and increased risk of a thromboembolic event have been extensively discussed with her. This has been by me. She is aware of the risk of a thromboembolic event from atrial fibrillation. 4. Further recommendations and plans will be based upon results of cardiac catheterization and any possible coronary intervention. 5. The catheterization will be performed later today by Dr. Vasiliy Rdz. I introduced Dr. Rdz to the patient and her . Her case was extensively discussed with Dr. Rdz by me. Thank you for asking us to see this patient in cardiology consultation.
[2017-08-28] MEDS ORDERED: CLOPIDOGREL BISULFATE 300 MG TAB PO ONE (16:38)
--- NOTE | 2017-08-28 16:42 | Cardiac Catheterization ---
Procedure Note Procedure Date Aug 28, 2017. Pre-Procedure Diagnosis Acute Coronary Syndrome AUC Score 8 Post-Procedure Diagnosis Severe CAD Procedure(s) Performed Coronary Angiography, Left Heart Cath, Radial Artery Angiography Deaf/Hard Of Hearing Specialist Dr. Rdz Account Services Analyst(s) Glunt Estimated Blood Loss < 25 ml Medication(s) Fentanyl, Heparin, Nicardipine, Versed, Lidocaine 1% Summary of Findings Coronary angiography: 1. Left main coronary artery: The LMCA is without significant CAD. 2. Left anterior descending: The LAD extends to the apex. Proximal LAD 30%. Mid LAD 50-70%, just distal to the bifurcation of D1. Distal LAD 20%. Medium caliber D1 proximal 90% followed by 50% stenosis. GREG 3 flow. 3. Circumflex: The circumflex is a large caliber vessel. Proximal circumflex 20%. Circumflex gives rise to large caliber OM1 and OM2. 4. Right coronary artery: The RCA is a large caliber dominant vessel. Proximal RCA 60-70% smooth narrowing which did not improved following nitroglycerin 300 mcg intracoronary. Mid RCA 30%. Distal RCA 30%. PL and PDA without significant CAD. Left heart catheterization: 1. Left ventriculography was not performed. 2. No aortic stenosis. 3. Mildly elevated LVEDP; 13mmHg. Procedural notes: 1. Right radial artery was tortuous. The 5 Wolof diagnostic catheters were passed over a Glidewire through the tortuous right radial artery without known complication. Sedation start time: 3:11 p.m. Sedation end time: 4:01 p.m. Impression: 1. Severe CAD involving D1, with moderate to severe CAD involving mid LAD and proximal RCA. 2. Mild nonobstructive CAD involving mid to distal RCA, circumflex, and proximal/distal LAD. 3. Mildly elevated LVEDP. 4. No aortic stenosis. Plan: 1. Images were reviewed with Dr. Galvez and Dr. Saeed of interventional cardiology. Dr. Saeed to attempt PCI of diagonal vessel. 2. Optimize medical therapy. Hemodynamics Rest Ao: 136/56 Final Ao: 105/45 LV: 132/0/13 Recommendations PCI without planned CABG Specimens None Radiation Exposure (mGy) 890 mGy. Fluoro time 12.4 min. Contrast (mls) 55 ml Procedural Complication(s) None Disposition Link Knitting Machine Operator Holding/Recovery ACC Data Cardiac Status Clinical evaluation leading to the procedure CAD Presntation: Unstable angina Anginal Classification: CCS IV Heart Failure: No Cardiogenic Shock w/in 24Hrs: No Cardiac Arrest w/in 24Hrs: No Imaging studies past 6 months: Yes (echo) Stress studies past 6 months: No Standard Exercise Stress Test: No Stress Echocardiogram: No Stress Testing w/SPECT MPI: No Cardiac CTA: No Coronary Anatomy Dominant: Right Left Main (% Stenosis): Normal LAD (% Stenosis): Proximal (30%), Mid (50-70%), Distal (20%) D1 (% Stenosis): Proximal (98% followed by 50%) Circumflex (% Stenosis): Proximal (20%) OM1 (% Stenosis): Normal OM2 (% Stenosis): Normal RCA (% Stenosis): Proximal (60-70%), Mid (30%), Distal (30%) R PDA (% Stenosis): Normal R PL1 (% Stenosis): Normal Left Ventricular Angiography EF (%): n/a Diagnostic Physician's Name: Vasiliy Rdz MD Status: Elective Closure Device Percutaneous Entry Location: Radial Closure Device: Radial Band Recommendations: PCI without planned CABG
--- NOTE | 2017-08-28 16:42 | Consultant Recommendations ---
Aircraft Instrument Engineer Recommendations Date of Service Aug 28, 2017. Aircraft Instrument Engineer Recommendations ACTIVITY RECOMMENDATIONS: Excess manipulation of the wrist should be avoided for the next 24-48 hours. * No lifting over 2 pounds (approximately a 1/2 gallon of milk) with the utilized arm for 24 hours. * No strenuous activity such as bowling or tennis for 3 days. * Keep the site of the procedure covered with a bandage for 24 hours. *You may shower the day after the procedure. Do not take a tub bath or submerge the puncture site in water for the next 3 days. *Do not operate any motorized equipment for 3 days. SPECIAL CARE INSTRUCTIONS: The site may be slightly bruised and sore following your procedure. Should any of the following occur, contact the Dr. who performed your procedure. 1. Redness/inflammation, swelling, chills, or fever, or colored drainage at procedure site within 3-7 days after your procedure. 2. Coldness, discoloration, ongoing numbness, severe pain, or swelling. Expect mild tingling of hand and tenderness at the puncture site for up to three days. If this persists beyond three days, or other symptoms develop, notify the Dr. who performed your procedure. BLEEDING: If the procedure site on your wrist begins to bleed, do not panic 1. Place 1 or 2 fingers firmly just slightly above the insertion site to stop the bleeding. You may be able to feel your pulse as you hold pressure. 2. Lift your finger after 5 minutes to see if the bleeding has stopped. 3. Once the bleeding has stopped, gently wipe the wrist area clean with a bandage. * If the bleeding from your wrist does not stop after 10 minutes, or if there is a large amount of bleeding or spurting, call 911 (do not drive yourself to the hospital). SKIN IRRITATION: * You may experience some redness and/or swelling in the area where radiation was administered. If any skin irritation occurs, please contact your family physician. FOLLOW UP VISIT: Keep any scheduled doctor appointments.
[2017-08-28] MEDS ORDERED: ACETAMINOPHEN 325 MG TAB PO PRN (17:00)
[2017-08-28] MEDS ORDERED: MoRPHine SULFATE 2 MG/ML CARP IV PRN (17:00)
[2017-08-28] MEDS ORDERED: ONDANSETRON INJ 2 MG/ML 2 ML VIAL ONE (17:06)
--- NOTE | 2017-08-28 17:08 | Post Sedation Assessment ---
Post Sedation Assessment General Date of Sedation Aug 28, 2017. Vital Signs: Vital Signs Past 12 Hours Date Time Temp Pulse Resp B/P (MAP) Pulse Ox O2 Delivery O2 Flow Rate FiO2 08/28/17 16:52 62 16 110/54 (72) 95 Room Air 08/28/17 16:37 64 16 106/54 (71) 99 Mask 3 08/28/17 15:30 36.6 71 18 113/75 (88) 95 Nasal Cannula 2.0 08/28/17 12:40 177/78 (111) 08/28/17 12:11 36.6 63 16 187/79 (115) 97 Room Air 08/28/17 12:00 Room Air 08/28/17 08:33 93 Room Air 08/28/17 08:00 93 Room Air 08/28/17 08:00 93 Room Air 08/28/17 07:39 93 Room Air 08/28/17 07:38 36.3 64 16 157/72 (100) 93 Room Air Post Procedure Recovery Score Activity: (2) Moves 4 extremities * Respiration: (2) Deep breath/cough Circulation: (2) +/-20% PreAnes Value Consciousness: (2) Fully Awake Oxygen Saturation: (2) > 92% On Room Air Post Anesthesia Score: 10 Discharge Sedation Level of Care: Fast Track Phase II Post Sedation Plan On clinical assessment, the patient appears to have tolerated the sedation without complications. Patient is recovering as anticipated. Patient will continue to be monitored by nursing and may be discharged when sedation discharge criteria are met per below protocol. Upon Completions of procedure and additional 15 minutes continue every 5 minute vital signs and the P.A.R. score; then discharge to a Phase I or Fast Track to Phase II per the following guidelines: * Discharge Patient to appropriate Phase II area if PAR is 8 or greater or return to pre- procedure baseline. The post - procedure orders will be as directed. * If PAR score is less than 8 or not return to pre-procedure baseline then patient will follow Phase I monitoring till PAR is reached for Phase II. The Phase I may be done in procedure room or may call to secure a Phase I area. * If naloxone or flumazenil are used for reversal, hold in Phase I for an additional 60 -120 minutes before discharge to Phase II. Please call the Sedation Physician to re-evaluate and complete post-note for discharge to Phase II area. Do NOT discharge from procedure sedation or Phase 1 until post- sedation evaluation note is complete by procedure /sedation MD Sedation Discharge Instructions to be given to the patient at discharge to home.
--- NOTE | 2017-08-28 17:16 | Cardiac Catheterization ---
Procedure Note Procedure Date Aug 28, 2017. Pre-Procedure Diagnosis Non STEMI AUC Score 8 Post-Procedure Diagnosis Severe CAD, Successful PCI Procedure(s) Performed Drug Eluting Stent Cotton Seed Culler Christophe School Clerk(s) [place]t Estimated Blood Loss 15 Medication(s) Clopidogrel, Fentanyl, Heparin, Nicardipine, Nitroglycerin, Versed Summary of Findings Indication: NSTEMI Access: 6Fr right radial artery Catheters: EBU 3.5 guide Findings: For full details of patient's coronary angiography please see cath report dictated by Dr. Rdz. Patient found to have severe acute proximal diagonal stenosis. Decision to proceed with PCI. -- PCI -- Antithrombotic therapy: Heparin, Clopidogrel Procedure: LM cannulated with EBU 3.5 guide Prowater wire placed into distal LAD Cordwood Cutter Helper 50 wire passed across diagonal lesion into distal vessel Diagonal lesion predilated with 2.0 compliant balloon Dilated lesion stented with 2.25 x 12 [place] REYNA IC vasodilators administered for spasm Post procedure GREG 3 flow, stent well expanded with minimal residual stenosis and no apparent cardiac complications. Arterial Closure: TR Band Summary: 1. Successful PCI of proximal 1st diagonal with single drug-eluting stent (2.25 x 12 [place]). Recommendations: To PCU for continued monitoring Loaded with Clopidogrel 600mg in label fuser tender Continue dual-antiplatelet therapy for 1 year Start statin and ARB. Additional ASCVD risk factor modification per Dr. Galvez Consult cardiac Rehab Hemodynamics Rest Ao: 136/56 Final Ao: 90/39/61 LV: 132/7 Recommendations PCI without planned CABG Specimens None Radiation Exposure (mGy) 2025 Contrast (mls) 130 Visi Fluids (cc crystalloids) 150 Drains None Anesthesia Moderate Procedural Complication(s) None Disposition PCU ACC Data Cardiac Status Clinical evaluation leading to the procedure CAD Presntation: Non STEMI Anginal Classification: CCS III Heart Failure: No, NYHA Class: CCS I Cardiogenic Shock w/in 24Hrs: No Cardiac Arrest w/in 24Hrs: No Imaging studies past 6 months: Yes Stress studies past 6 months: No Closure Device Percutaneous Entry Location: Radial Closure Device: Radial Band Recommendations: PCI without planned CABG PCI Indication: PCI for high risk Non-STEMI Lesion Segment Name: Proximal 1st diagonal Culprit Artery: Yes Stenosis Prior to Rx (%): 95 Chronic Total Occlusion: No IVUS: No FFR: No Pre-Procedure GREG Flow: 3 Previously Treated Lesion: No Lesion Complexity: Non-High/Non-C Lesion Length (mm): 10 Thrombus Present: Yes Bifurcation Lesion: No Guidewire Across Lesion: Yes Guidewire: Stenosis Post-Procedure (%): 0 Post-Procedure GREG Flow: 3 Device(s) Deployed: Yes Intraprocedure Events Significant Dissection: No Perforation: No
[2017-08-28] MEDS ORDERED: SODIUM CHLORIDE 0.9% 1000ML 1,000 ML IV SCH (17:30)
[2017-08-28] MEDS ORDERED: NURSING VERBAL MED ORDER ONE (17:45)
[2017-08-28] MEDS: ONDANSETRON INJ 2 MG/ML 2 ML VIAL IV PRN (20:50)
[2017-08-28] MEDS ORDERED: METOPROLOL SUCC 25MG EXT REL TAB PO SCH (21:00)
[2017-08-29 02:55] VITALS: BP 117/59; PULSE 67; TEMP 36.6; O2SAT 98
[2017-08-29 06:23] LABS: BASO % 0.3 %; BASO ABS # 0.02 K/uL (0-0.2); EOS % 0.3 %; EOS ABS # 0.02 K/uL (0-0.5); HEMATOCRIT 34.6 % (37-47); IG# 0.01 K/uL (0.00-0.02); LYMPH % 31.1 %; LYMPH ABS # 2.19 K/uL (1.2-3.4); MEAN CELL VOLUME 92.3 fL (80-100); MEAN CORPUSCULAR HGB CONC 34.7 g/dl (32-36); MONO ABS # 0.49 K/uL (0.11-0.59); NEUT % 61.2 %; NEUT ABS # 4.31 K/uL (1.4-6.5); PLATELET COUNT 139 K/uL (130-400); RED CELL DISTRIBUTION WIDTH CV 13.1 % (11.5-14.5); RED CELL DISTRIBUTION WIDTH SD 44.2 fL (36.4-46.3); WHITE BLOOD COUNT 7.04 K/uL (4.8-10.8)
[2017-08-29 07:07] LABS: CALCIUM 8.3 mg/dl (8.5-10.1); CREATININE 0.94 mg/dl (0.60-1.20); POTASSIUM 3.9 mmol/L (3.5-5.1)
[2017-08-29 07:21] VITALS: BP 126/59; PULSE 56; TEMP 36.7; O2SAT 94
[2017-08-29] MEDS: ONDANSETRON INJ 2 MG/ML 2 ML VIAL IV PRN (07:31)
[2017-08-29 08:00] VITALS: O2SAT 94
[2017-08-29] MEDS: ASPIRIN 81 MG ECTAB PO SCH (08:20)
[2017-08-29] MEDS: MULTIVITAMIN TAB PO SCH (08:20)
[2017-08-29] MEDS: OMEGA-3 (PURIFIED FISH OIL) 1 GM CAP PO SCH (08:20)
[2017-08-29] MEDS ORDERED: LOSARTAN POTASSIUM 25 MG TAB PO SCH (09:00)
[2017-08-29] MEDS ORDERED: CLOPIDOGREL BISULFATE 75 MG TAB PO SCH (09:00)
[2017-08-29] MEDS ORDERED: ROSUVASTATIN CALCIUM 20 MG TAB PO SCH (09:00)
[2017-08-29] MEDS ORDERED: METOPROLOL SUCC 25MG EXT REL TAB PO SCH ×2 (09:00→10:00)
--- NOTE | 2017-08-29 09:41 | CARDIOLOGY PROGRESS NOTE ---
DATE: 08/29/2017 HISTORY OF PRESENT ILLNESS: The patient was seen by me this morning in her telemetry unit room. This morning, she is feeling well from a cardiac standpoint. No chest, shoulder, back, or arm discomfort. She did have nausea this morning which resolved with administration of Zofran. She was then able to eat her breakfast well. She denies any dyspnea. No orthopnea or PND overnight. No complaints of palpitations, lightheadedness, or syncope. No abdominal pain. No leg pain. No neurologic symptoms. No pain at the right radial catheterization site. No right hand pain. MEDICATIONS: This morning were clopidogrel 75 mg daily, rosuvastatin 20 mg daily, losartan 25 mg daily, metoprolol succinate ER 25 mg daily, aspirin 81 mg daily, sublingual nitroglycerin 0.4 mg as needed, and several other p.r.n. medications. ALLERGIES AND ADVERSE DRUG REACTIONS: ATORVASTATIN, WHICH REPORTEDLY CAUSED A COUGH, LEVOTHYROXINE, LISINOPRIL WHICH CAUSED A COUGH, ATENOLOL WHICH CAUSED A COUGH. THESE ADVERSE REACTIONS WERE MANY YEARS AGO. AMIODARONE WHICH CAUSED BLURRED VISION. Monitor history reviewed by me. Sinus rhythm. No arrhythmias. PHYSICAL EXAMINATION: VITAL SIGNS: This morning with oral temperature 36.7, pulse 56, blood pressure 126/59, pulse oximetry room air 94%. NECK: No jugular venous distention. LUNGS: Normal respiratory effort. Clear. No rales or wheezes. HEART: Regular rate and rhythm. S1, S2 normal. No S3 or S4. No murmur or rub. ABDOMEN: Soft. Nontender. No palpable masses or organomegaly. No bruits. EXTREMITIES: No pretibial edema. No cyanosis or clubbing. Right radial catheterization site without tenderness or bleeding. Right radial pulse palpable. No evidence of arterial insufficiency in the right hand. NEUROLOGIC: Alert and oriented x3. Motor grossly intact. PSYCHIATRIC: Affect is normal. LABORATORY DATA: This morning with hemoglobin 12.0, hematocrit 34.6, platelet count 139. Metabolic profile was sodium 140, potassium 3.9, chloride 110, carbon dioxide 22, BUN 22, creatinine 0.94, random glucose 92. Troponin I last evening 0.076. Magnesium today 2.4. Electrocardiogram performed post-PCI yesterday when patient was complaining of shoulder discomfort revealed normal sinus rhythm and nonspecific T-wave abnormality. Compared to her prior electrocardiogram, the T-wave abnormalities have actually improved. Cardiac catheterization performed yesterday via the right radial artery by Dr. Vasiliy Rdz revealed severe proximal LAD diagonal stenosis. This was the first LAD diagonal. 50-70% mid LAD stenosis. 60-70% proximal RCA stenosis. 30% distal RCA stenosis. The patient subsequently underwent intervention to the diagonal stenosis with PTCA followed by deployment of a 2.25 x 12 mm drug-eluting stent. No complications. GREG 3 flow in all vessels post procedure. ASSESSMENT: 1. Admission with non-ST elevation myocardial infarction. 2. Cardiac catheterization yesterday was severe proximal LAD stenosis. This had the appearance of an acute lesion. Subsequent successful intervention to the diagonal stenosis. 3. Post-procedure the patient did complain of shoulder discomfort. This may have been secondary to "stretch" of the coronary artery following stent deployment. This symptom resolved last evening. 4. No cardiac symptoms this morning. No anginal symptoms. No signs or symptoms of congestive heart failure. No signs or symptoms of arrhythmia. 5. No evidence of vascular complications at the right radial catheterization site. 6. Post-procedure labs good. Normal renal function. Hemoglobin stable. 7. Electrocardiogram performed yesterday when patient was complaining of shoulder discomfort post-procedure revealed no new changes. The electrocardiogram is actually improved from her prior electrocardiograms this admission. 8. Remote history of paroxysmal atrial fibrillation. The patient has refused anticoagulation therapy in the past. 9. Blood pressure and heart rate well controlled this morning. RECOMMENDATIONS: 1. Continue current medications. 2. Discharge home on aspirin 81 mg daily, losartan 25 mg daily, metoprolol succinate ER 12.5 mg daily, rosuvastatin 20 mg daily and sublingual nitroglycerin 0.4 mg as needed for chest pain. 3. Cardiology followup visit with me in 1-2 weeks. 4. Walk in the [place] this morning. If she can do this without any cardiac complaints, would discharge home later today.
--- NOTE | 2017-08-29 10:13 | Clinical Documentation Query ---
CLINICAL DOCUMENTATION QUERY 82 yo female admitted with NSTEMI. Echo shows normal left ventricular size with hyperdynamic systolic function. EF 65-70%. No regional wall motion abnormalities. Mild concentric left ventricular hypertrophy. Type 1 diastolic dysfunction. In your clinical opinion is this patient being managed for: ( ) Chronic diastolic CHF ( ) Not Agree ( ) Other explanation of clinical findings (Please Explain) ( ) Unable to determine (Please Define) ( ) Need to Discuss The medical record reflects the following clinical findings, treatment, and risk factors. Clinical Indicators: As above Treatment: Telemetry, Cardiology consult, I&O Risk Factors: NSTEMI, A-fib, CAD Please clarify and document your clinical opinion in the progress notes and discharge summary. Terms such as "probable", "suspected", "likely", "questionable", "possible", or "still to be ruled out" are acceptable. IF IN AGREEMENT, YOU MUST DOCUMENT ABOVE DIAGNOSTIC STATEMENT IN DAILY PROGRESS NOTES AND DISCHARGE SUMMARY. This document is not part of the patient's record. Thank You, Liliya Agarwal RN [phone]
[2017-08-29] MEDS ORDERED: CZR25 PO (10:44)
[2017-08-29] MEDS ORDERED: CRS20 PO (10:44)
[2017-08-29] MEDS ORDERED: TPRSR25 PO (10:44)
[2017-08-29] MEDS ORDERED: NTRSLP4 SL (10:44)
[2017-08-29] MEDS ORDERED: PLV75 PO (10:44)
--- NOTE | 2017-08-29 10:55 | Discharge Instructions ---
Discharge Instructions Date of Service Aug 29, 2017. Admission Reason for Admission: Left Sided Chest Pain Discharge Discharge Diagnosis / Problem: chest pain due to heart attack with stent placement in your heart Discharge Goals Goal(s): Learn about illness, Diagnostic testing, Therapeutic intervention Activity Recommendations Activity Limitations: as noted below ACTIVITY RECOMMENDATIONS following your heart catheterization: Excess manipulation of the RIGHT wrist should be avoided for the next 24-48 hours. * No lifting over 2 pounds (approximately a 1/2 gallon of milk) with the right arm for 24 hours. * No strenuous activity - this includes going to the gym, heavy yard work, heavy household tasks - until cleared by Dr. Galvez. * Keep the site of the procedure covered with a bandage for 24 hours. * You may shower the day after the procedure. HOWEVER, do not take a tub bath or submerge the puncture site in water for the next 3 days. * Do not operate any motorized equipment for 3 days. SPECIAL CARE INSTRUCTIONS: The site may be slightly bruised and sore following your procedure. Should any of the following occur, contact the Dr. who performed your procedure. 1. Redness/inflammation, swelling, chills, or fever, or colored drainage at procedure site within 3-7 days after your procedure. 2. Coldness, discoloration, ongoing numbness, severe pain, or swelling. Expect mild tingling of hand and tenderness at the puncture site for up to three days. If this persists beyond three days, or other symptoms develop, notify the Dr. who performed your procedure. BLEEDING: If the procedure site on your wrist begins to bleed, do not panic 1. Place 1 or 2 fingers firmly just slightly above the insertion site to stop the bleeding. You may be able to feel your pulse as you hold pressure. 2. Lift your finger after 5 minutes to see if the bleeding has stopped. 3. Once the bleeding has stopped, gently wipe the wrist area clean with a bandage. * If the bleeding from your wrist does not stop after 10 minutes, or if there is a large amount of bleeding or spurting, call 911 (do not drive yourself to the hospital). SKIN IRRITATION: * You may experience some redness and/or swelling in the area where radiation was administered. If any skin irritation occurs, please contact your family physician. . Instructions / Follow-Up Instructions / Follow-Up From Dr. Lane - hospitalist team - 1. Instructions following your heart attack and heart catheterization - Home Care: * Take your medications exactly as directed. Don't skip doses. * Remember that recovery after a heart attack takes time. Plan to rest for at lease 4-8 weeks while you recover. Then return to normal activity when your doctor says it's okay. * Ask your doctor about joining a heart rehabilitation program. * Tell your doctor if you are feeling depressed. Feelings of sadness are common after a heart attack, but it is important that you speak to someone if you are feeling overwhelmed by these feelings. * If you are having chest pain, call 911 for an ambulance. Do NOT drive yourself to the hospital. * Ask your family members to learn CPR. * Learn to take your own blood pressure and pulse. Keep a record of your results. Ask your doctor when you should seek emergency medical attention. He or she will tell you which blood pressure reading is dangerous. Lifestyle Changes: * Maintain a healthy weight. Get help to lose any extra pounds. * Cut back on salt. * Limit canned, dried, packaged, and fast foods. * Don't add salt to your food. * Season foods with herbs instead of salt when you cook. * Break the smoking habit. Enroll in a stop-smoking program to improve your chances of success. * Limit fatty foods. * Ask your doctor about having your lipid levels checked regularly. * Build up your activity according to your doctor's recommendation. * Ask your doctor when it's okay to resume sexual activity. * Try to manage stress. 2. The following new medications have been started for your heart. Take them each and every day for your heart - * losartan 25mg once a day * metoprolol xl 25mg once a day * crestor 20mg once a day (for cholesterol) * aspirin 81mg once a day * plavix (clopidogrel) 75mg once a day (to keep your stent open) 3. Nitroglycerin tablets - keep the bottle of nitroglycerin with you at all times. This is to be used as needed for chest pain, shortness of breath, or any other symptom that was like your heart attack. Place a tablet under the tongue and let it dissolve. Maximum 3 tabs in 15 minutes. If you have to take nitroglycerin at any time please contact Dr. Galvez's office right away or seek medical attention. 4. Follow-up - * see Dr. Cohen within 1 week * see Dr. Galvez - cardiology - within 1-2 weeks 5. Return to [facility] if - * you have chest pain or any other symptoms resembling your heart attack pain * worsening breathing/shortness of breath * bleeding from your rectum, your bladder, nosebleed, etc * severe dizziness * any other concerns Current Hospital Diet Patient's current hospital diet: Regular Diet Discharge Diet Recommended Diet: AHA Diet (Heart Healthy) Procedures Procedures Performed: heart catheterization with placement of one stent - Dr. Cruzito Saeed / Dr. Vasiliy Rdz echocardiogram showing normal heart function Pending Studies Studies pending at discharge: no Laboratory Results Hemoglobin A1c Test 08/28/17 02:58 Range/Units Estimated Average Glucose 117 mg/dl Hemoglobin A1c 5.7 H 4.5-5.6 % Lipid Panel Test 08/28/17 02:58 Range/Units Triglycerides Level 92 0-150 mg/dl Cholesterol Level 172 0-200 mg/dl HDL Cholesterol 44 mg/dl Cholesterol/HDL Ratio 3.9 LDL Cholesterol, Calculated 110 mg/dl Medical Emergencies . Who to Call and When: Medical Emergencies: If at any time you feel your situation is an emergency, please call 911 immediately. Call 911 immediately or go to your nearest Emergency Room if you experience any of the following: Warning Signs and Symptoms of a Heart Attack * Chest pain that is not relieved by medication * Shortness of breath . Non-Emergent Contact Non-Emergency issues call your: Primary Care Provider, Employment Programs Analyst Call Non-Emergent contact if: temperature is above 100.5, your pain is not controlled, your pain is worsening, your pain is unusual for you, your pain is concerning you, you have any medication questions . . "Provider Documentation" section prepared by Sandor Lane. . Inside Wirer Recommendations Inside Wirer Recommendations: ACTIVITY RECOMMENDATIONS: Excess manipulation of the wrist should be avoided for the next 24-48 hours. * No lifting over 2 pounds (approximately a 1/2 gallon of milk) with the utilized arm for 24 hours. * No strenuous activity such as bowling or tennis for 3 days. * Keep the site of the procedure covered with a bandage for 24 hours. *You may shower the day after the procedure. Do not take a tub bath or submerge the puncture site in water for the next 3 days. *Do not operate any motorized equipment for 3 days. SPECIAL CARE INSTRUCTIONS: The site may be slightly bruised and sore following your procedure. Should any of the following occur, contact the Dr. who performed your procedure. 1. Redness/inflammation, swelling, chills, or fever, or colored drainage at procedure site within 3-7 days after your procedure. 2. Coldness, discoloration, ongoing numbness, severe pain, or swelling. Expect mild tingling of hand and tenderness at the puncture site for up to three days. If this persists beyond three days, or other symptoms develop, notify the Dr. who performed your procedure. BLEEDING: If the procedure site on your wrist begins to bleed, do not panic 1. Place 1 or 2 fingers firmly just slightly above the insertion site to stop the bleeding. You may be able to feel your pulse as you hold pressure. 2. Lift your finger after 5 minutes to see if the bleeding has stopped. 3. Once the bleeding has stopped, gently wipe the wrist area clean with a bandage. * If the bleeding from your wrist does not stop after 10 minutes, or if there is a large amount of bleeding or spurting, call 911 (do not drive yourself to the hospital). SKIN IRRITATION: * You may experience some redness and/or swelling in the area where radiation was administered. If any skin irritation occurs, please contact your family physician. FOLLOW UP VISIT: Keep any scheduled doctor appointments. AMI Core Measures Reason no ASA as I/P: Treatment provided - N/A Reason no ASA at D/C: Treatment provided - N/A Reason no statin as I/P: Treatment provided - N/A Reason no statin at D/C: Treatment provided - N/A
[2017-08-29 11:08] VITALS: BP 126/59; PULSE 56; TEMP 36.7; O2SAT 94
--- NOTE | 2017-09-03 13:27 | Discharge Summary ---
Discharge Summary Date of Service Sep 03, 2017. Discharge Summary Admission Date: Aug 28, 2017 at 20:50 Discharge Date: Aug 29, 2017 Discharge Disposition: Home Principal Diagnosis: NSTEMI s/p drug-eluting stent Problems/Secondary Diagnoses: 1. CAD 2. prior h/o a. fib 3. history of hypothyroidism 4. CKD stage 3 5. hyperlipidemia Procedures: 1. cardiac catheterization - Vasiliy Rdz MD / Cruzito Saeed MD Coronary angiography: Dr. Rdz 1. Left main coronary artery: The LMCA is without significant CAD. 2. Left anterior descending: The LAD extends to the apex. Proximal LAD 30%. Mid LAD 50-70%, just distal to the bifurcation of D1. Distal LAD 20%. Medium caliber D1 proximal 90% followed by 50% stenosis. GREG 3 flow. 3. Circumflex: The circumflex is a large caliber vessel. Proximal circumflex 20%. Circumflex gives rise to large caliber OM1 and OM2. 4. Right coronary artery: The RCA is a large caliber dominant vessel. Proximal RCA 60-70% smooth narrowing which did not improve following nitroglycerin 300 mcg intracoronary. Mid RCA 30%. Distal RCA 30%. PL and PDA without significant CAD. Intervention: Dr. Saeed PCI of proximal 1st diagonal with single drug-eluting stent (2.25 x 12 [place]) 2. echocardiogram - * -- Conclusions -- * 1. Normal left ventricular size with hyperdynamic systolic function. EF 65-70 %. No regional wall motion abnormalities. Mild concentric left ventricular hypertrophy. Type 1 diastolic dysfunction. * 2. Aortic valve sclerosis mild, without significant aortic valvular stenosis. * 3. There is mild mitral regurgitation. * 4. Normal estimated right ventricular systolic pressure. * 5. No prior study available for comparison. Consultations: cardiology - [facility] cardiologists Medication Reconciliation New Medications: Clopidogrel Bisulfate (Clopidogrel) 75 Mg Tab 75 MG PO QAM, #30 TAB 5 Refills to keep your heart stent open Losartan Potassium (Losartan Potassium) 25 Mg Tab 25 MG PO QAM, #30 TAB 5 Refills for your heart Metoprolol Succinate (Metoprolol Succinate ER) 25 Mg Tabcr 25 MG PO QAM, #30 TABS 5 Refills for your heart Nitroglycerin (Nitrostat) 0.4 Mg/1 Tab Subl 0.4 MG SL [id number] PRN for Chest Pain, #1 BTL 0 Refills max 3 doses/15 minutes Rosuvastatin Calcium (Crestor) 20 Mg Tab 20 MG PO QAM, #30 TAB 5 Refills for your cholesterol Continued Medications: Aspirin (Aspirin Chewable) 81 Mg Chew 81 MG PO QAM, TAB Calcium Carbonate-Vitamin D (Calcium) 1 Tab Tab 1 TAB PO DAILY Cholecalciferol (Vitamin D3) 1,000 Unit Tab 1 TAB PO DAILY, TAB Coenzyme Q10 (Ubidecarenone) (Coq10) 200 Mg Cap 1 CAP PO QAM Fish Oil ([place]-3) 1 Ea Cap 1 CAP PO QAM, CAP Glucosamine Hydrochloride (Glucosamine) 500 Mg Tab 1 TAB PO QAM Magnesium Oxide (Magnesium) 250 Mg Tab 1 TAB PO QAM Multivitamin (Multivitamin) Tab 1 TAB PO QAM, TAB Referrals At Discharge Follow up Referrals: [employer] Referral - Within 1-2 Weeks with James Galvez M.D. Discharge Exam Physical Exam: General Appearance: no apparent distress ENT: pharynx normal Neck: no JVD Respiratory/Chest: lungs clear, no respiratory distress, no accessory muscle use Cardiovascular: regular rate, rhythm, no edema, no gallop, no JVD, no murmur , normal peripheral pulses Abdomen / GI: normal bowel sounds, non tender, soft, no organomegaly Extremities: no pedal edema Neurologic/Psychiatric: alert, oriented x 3 Skin: + pertinent finding (right radial artery - minimal bruising, no hematoma ) Hospital Course HISTORY OF PRESENT ILLNESS: 82-year-old female with past medical history of lumbar DJD and remote history of atrial fibrillation currently on aspirin only - otherwise healthy - who presented complaining of pain in her back. Her massaged her back and she used some heating pad. Today she woke up from sleep with severe headache and left arm severe pain with slight left-sided chest pain. Her checked her blood pressure when she was having the severe pain and it was only 60/40 with a heart rate of 59. Patient said pain was squeezing in character mainly in the head and left arm and partially in the left side of the chest. Denied any associated symptoms. Denied any focal weakness. By the time she arrived in the ER she was pain-free and her BP was in fact high (170s systolic). HOSPITAL COURSE: The patient's peak troponin was 0.180. She remained chest-pain free for the remainder of her stay. She was seen in consult by cardiology who felt her constellation of symptoms/ signs/elevated troponin/etc were consistent with NSTEMI. She underwent cardiac catheterization by Dr. Vasiliy Rdz on hospital day #2 with results as noted above. Multi-vessel CAD was found. Stenting was recommended and therefore Dr. Cruzito Saeed placed a drug- eluting stent in her first diagonal that contained a 90% occlusion. Post-cath she was placed on plavix, beta justus, high-intensity statin, and low -dose ARB. Aspirin was continued. Fortunately her echo was entirely normal and her telemetry remained stable while hospitalized. On hospital day #3 she was discharged to home in stable condition. She will have follow-up with her PCP, Dr. Cohen, within 1 week of discharge and the [facility] office within 2 weeks. Post-AL instructions were discussed in detail with the patient and her . Total Time Spent: Greater than 30 minutes This includes examination of the patient, discharge planning, medication reconciliation, and communication with other providers. Discharge Instructions Please refer to the electronic Patient Visit Report (Discharge Instructions) for additional information. Follow-Up 1. Dr. Cohen - PCP - FridayAugust AT 7:10 pm. 2. [facility] Cardiology Office with Dr. Galvez's assistant professor of anthropology, Alanna Felder PA-C, on FridaySeptember 10 at 4:00 pm. Additional Copies To Chad Cohen M.D.; Alanna Felder PA-C; James Galvez M.D.
== END 2017-08-29 11:50 | disposition home or self-care (01) | DRG 247 ==
LOC: C.EDB 11:45 → C.MED 15:07 → ENRESERV 15:22 → C.MED 18:24 → ENRESERV 08-28 15:24 → C.2E 08-28 16:56 → OBSVTOIN 08-28 20:50
PROVIDERS: ADMIT Internal Medicine; ATTEND Internal Medicine
PROC: 4A023N7 Measurement of Cardiac Sampling and Pressure, Left Heart, Percutaneous Approach (ICD-10-PCS; 2017-08-28)
PROC: B2111ZZ Fluoroscopy of Multiple Coronary Arteries using Low Osmolar Contrast (ICD-10-PCS; 2017-08-28)
PROC: 027034Z Dilation of Coronary Artery, One Artery with Drug-eluting Intraluminal Device, Percutaneous Approach (ICD-10-PCS; principal; 2017-08-28 15:07)
PROC: 3E073GC Introduction of Other Therapeutic Substance into Coronary Artery, Percutaneous Approach (ICD-10-PCS; principal; 2017-08-28 15:07)
PROC: 3E053PZ Introduction of Platelet Inhibitor into Peripheral Artery, Percutaneous Approach (ICD-10-PCS; principal; 2017-08-28 15:07)
DX: I21.4 Non-ST elevation (NSTEMI) myocardial infarction (principal); I25.110 Atherosclerotic heart disease of native coronary artery with unstable angina pectoris; I48.0 Paroxysmal atrial fibrillation; E03.9 Hypothyroidism, unspecified; K58.9 Irritable bowel syndrome, unspecified; J45.909 Unspecified asthma, uncomplicated; E78.5 Hyperlipidemia, unspecified; R55 Syncope and collapse; Z79.82 Long term (current) use of aspirin; Z88.8 Allergy status to other drugs, medicaments and biological substances; Z82.49 Family history of ischemic heart disease and other diseases of the circulatory system

== ENCOUNTER → 2018-01-19 | Outpatient (CLI) | payer BC ==
[~2018-01-19] MED LIST changes: -CHOL100010 PO; -COEN1CAP7 PO; +CRS20 PO; +CZR25 PO; -GLUC1TAB8 PO; -MAGN250T22 PO; -MULT-506 PO; +NTRSLP4 SL; -OMEG10007 PO; +PLV75 PO; +TPRSR25 PO
--- NOTE | 2018-01-20 14:59 | MAMMOGRAPHY REPORT ---
BILATERAL DIGITAL SCREENING MAMMOGRAM TOMOSYNTHESIS WITH CAD: 01/19/2018 CLINICAL HISTORY: Routine screening. Patient has no complaints. TECHNIQUE: The study was acquired using full field digital technology and interpreted from soft copy. Breast tomosynthesis in addition to standard 2D mammography was performed. Current study was also ev aluated with a Computer Aided Detection (CAD) system. COMPARISON: Comparison is made to exams dated: 01/06/2017 mammogram, 01/05/2016 mammogram, 01/02/2015 m ammogram, 08/03/2013 mammogram, 01/21/2013 mammogram, and 01/20/2012 mammogram - [facility] enter. BREAST COMPOSITION: The tissue of both breasts is heterogeneously dense, which may obscure small mass es. FINDINGS: An asymmetry in the lateral posterior right breast on the CC view appears very similar to t 2012 exam and effaces on the tomosynthesis images, most likely normal overlapping fibroglandular t issue. No suspicious mass, architectural distortion or cluster of microcalcifications is seen. IMPRESSION: ACR BI-RADS CATEGORY 1: NEGATIVE There is no mammographic evidence of malignancy. A 1 year screening mammogram is recommended.( 019) The patient will receive written notification of the results. Some breast cancers are not detected with mammography. A negative mammographic report should not siddharth y biopsy if a clinically suggestive mass is present. Alanna Llamas M.D. ay/:01/20/2018 08:07:39 Betting Agency Counter Clerk: RT Colin(Hitesh)(M), [facility] letter sent: Normal 1/2 BI-RADS Code: ACR BI-RADS Category 1: Negative
== END | disposition home or self-care (01) ==
LOC: C.MAMM 13:55
PROVIDERS: ATTEND Family Medicine
DX: Z12.31 Encounter for screening mammogram for malignant neoplasm of breast (principal); M85.852 Other specified disorders of bone density and structure, left thigh

== ENCOUNTER 2025-06-02 14:37 | Inpatient (IN) ==
[2025-06-02] MEDS: ASPIRIN CHEW 324 MG PO STA (15:22)
[2025-06-02] MEDS: PLASMA-LYTE A 1,000 ML IV ONE (15:23)
--- NOTE | 2025-06-02 15:32 | CT Scan Report ---
EXAM: CT Head Without Intravenous Contrast INDICATION: Not following commands. TECHNIQUE: Axial computed tomography images of the head/brain without intravenous contrast. Sagittal and/or coronal reformats are provided. Sagittal and coronal reformatted images were created and reviewed. This CT exam was performed using one or more of the following dose reduction techniques: automated exposure control, adjustment of the mA and/or kV according to patient size, and/or use of iterative reconstruction technique. COMPARISON: 03/21/2022 FINDINGS: Limitations: None. Brain and extra-axial spaces: There is age appropriate cortical atrophy and chronic ischemic periventricular white matter hypodensity. No acute infarct, hemorrhage or mass noted. Bones/joints: No acute changes. Soft tissues: No acute abnormality noted. Vasculature: No acute abnormality noted. Sinuses: No layering fluid in the visualized portions of the paranasal sinuses. Mastoid air cells: No mastoid effusion. Orbits: No acute abnormality noted. IMPRESSION: Cerebral atrophy. No acute changes. ACT 112: N/A Electronically signed by Carlene Tavarez 06-02-2025 3:31 PM
[2025-06-02 15:36] LABS: Hematocrit (blood only) 36.1 % (37.0-47.0); Hemoglobin 12.1 g/dL (12.0-16.0); Immature Granulocytes # (auto) 0.02 K/uL (0.01-0.20); Immature Granulocytes % (auto) 0.3 %; Mean Corpuscular Hemoglobin 32.2 pg (25.0-34.0); Mean Corpuscular Volume 96.0 fL (80.0-100.0); Platelet Count 115 K/uL (130-400); RDW Standard Deviation 47.9 fL (36.4-46.3); Red Blood Count 3.76 M/uL (4.20-5.40); White Blood Count 5.90 K/ul (4.8-10.8)
--- NOTE | 2025-06-02 15:45 | Emergency Department Note ---
Impression & Plan Atrial fibrillation with rapid ventricular response, Atypical chest pain, Non- ST elevation [place] (NSTEMI) ED Provider Note NAME: SUZE MEJIA AGE: 89 SEX: F : 1935 ARRIVES VIA: Walk-In INFORMANT: Patient, daughter, [employer] ED PROVIDER(S): Chance Peñaloza DO CHIEF COMPLAINT: chest pain HPI: This is an 89-year-old female with the PMHx of HTN, HLD, CAD s/p PCI (2018), pAfib on chronic anticoagulation (Apixaban) and CKD presenting to [facility] for further evaluation of chest pain, nausea and headache. Patient is accompanied by family who provide additional history. Patient states around noon today she developed symptoms. Her symptoms include chest pain with associated left shoulder and upper extremity pain. She also reports a right- sided posterior headache. Patient states that symptoms are very similar to when she had ACS in 2018. Patient has noted that her blood pressure seems to be fluctuating at home. She notes recent medication changes. Patient states that she is nauseous. She does not report any stroke history. States that she is compliant with her medications including chronic anticoagulation with apixaban. All They deny fever or chills. No cough or congestion. No shortness of breath. They deny abdominal pain and vomiting. No urinary complaints. No recent changes in bowel movements. Patient denies recent changes in medications or OTC supplements. Patient offers no other complaints, today. ADDITIONAL HISTORY OBTAINED: Per HPI Chronic Medical/Social Conditions Affecting Care: Per HPI PAST MEDICAL HISTORY: See Below PAST SURGICAL HISTORY: See Below FAMILY HISTORY: See Below SOCIAL HISTORY: See Below HOME MEDICATIONS: See Below ALLERGIES: See Below VITALS: See Below PHYSICAL EXAMINATION: GENERAL: Sitting up in bed, alert, well appearing, well nourished, no distress, non-toxic EYE EXAM: normal conjunctiva. PERRL and EOM's grossly intact. OROPHARYNX: no exudate, no erythema, lips, buccal mucosa, and tongue normal and mucous membranes are moist NECK: supple, no nuchal rigidity, no adenopathy, non-tender LUNGS: Clear to auscultation. Normal chest wall mechanics HEART: no murmurs, tachycardic rate, irregular rhythm ABDOMEN: abdomen soft, non-tender, no masses, no rebound or guarding. BACK: Back is symmetrical on inspection and there is no deformity, no midline tenderness, no CVA tenderness. SKIN: no rashes and no bruising UPPER EXTREMITIES: upper extremities are grossly normal. LOWER EXTREMITIES: No pitting edema. NEURO EXAM: Normal sensorium, GCS 15, normal speech, no gross weakness of arms, no gross weakness of legs. No drift. Gross sensation intact. No ataxia. NIHSS 0. MEDICAL DECISION MAKING: Differential diagnoses includes but not limited to ACS, stable vs unstable angina, dysrhythmia, viral URI, pneumonia, pericarditis, pneumothorax, costochondritis, MSK strain, PE, hypertensive emergency, psychological causes, esophageal reflux, gastritis, headache, migraine, CVA, SAH, orthostatic hypotension In summary, this is an 89 year old female who presented with headache, chest pain and nausea. Differential as above. Nursing notes and pertinent past medical records reviewed. Vital signs reviewed and the patient is tachycardic but otherwise afebrile and HDS. History and presentation revealed extensive risk factors for ACS and prior PCI. Physical examination revealed no evidence of stroke. No concern for CHF exacerbation. As a result of my initial evaluation, IV access was established and the patient was placed on CCRM. Therapeutics ordered include IVFR and ASA load. Concern for ACS but atypical symptoms. While her symptoms are atypical, they are exactly similar to prior event in 2018 that led to LAD PCI. Headache is slightly atypical for her and will obtain screening CTH. Diagnostics interpreted by me include EKG and cardiac monitoring as listed below: -Cardiac Monitoring: An order was placed for continuous cardiac monitoring. The monitor shows a rate of 60-140s with regular rhythm. -ECG: Atrial fibrillation with RVR at a rate of [address] segment changes to suggest STEMI. Intervals are within normal limits otherwise. -Repeat ECG: normal sinus rhythm at a ventricular rate of [address] segment changes to suggest STEMI. Intervals are within normal limits. Patient completed laboratory studies and imaging. CXR independently interpreted by me reveals no evidence of focal consolidation to suggest pna. No large pneumothorax or pleural effusion. No obvious displaced rib fracture. Results independently interpreted by me are no leukocytosis or anemia. There is no significant electrolyte derangements or significant kidney dysfunction from baseline. No changes in LFTs from baseline. Troponemia present. The patient was managed with IVFR, analgesia and rate control. She was provided with ASA load. Once the patient's labs returned, these looked relatively unremarkable besides mild troponin leak. Do feel some of her symptoms could be related to her atrial fibrillation with RVR. Plan to manage with a dose of Cardizem. Patient was given Cardizem with rate control. EKG was repeated. She has ongoing pain. Her headache has improved. Patient reporting mostly left upper extremity pain and left posterior shoulder pain. Patient definitely has orthostatic hypotension based on nursing staff. Patient did receive IV fluid resuscitation. Patient still having pain with a mild troponin leak and atrial fibrillation with RVR, I do feel that she would benefit from admission. Family is agreeable to this. They would prefer this rather than discharge. Ultimately, the decision was made to admit the patient for atrial fibrillation with RVR with chest pain. She is rate controlled at this time. Initial troponin is 23 that uptrended to 73.1. I favor that her troponinemia is related to her RVR but will touch base with cardiology given her symptoms are consistent with prior ACS and LAD PCI in 2018. Discussed with Dr. Stack of cardiology. EKG was repeated and she converted to NSR. She was reevaluated and her symptoms are improved. I discussed the case with the hospitalist service via telephone/Tiger[employer] and they are agreeable to admit the patient to their services. Based on the above, including the patient's age, coexisting illnesses, labs, imaging, and exam findings the decision to treat as an inpatient. I discussed the patient with the hospitalist team who recommended admission to their services. They received the medications, treatments, interventions indicated above and their condition remained gaurded. I discussed my findings with the patient and their family and they understand and agree with the treatment plan. All patient / family questions were answered to their satisfaction. Case discussed with consultants including [facility] Cardiology, Dr. Stack. Dr. Stack did not think heparin gtt was necessary at this point. Consults/Care Managements Discussions: Per [facility] ER treatment provided: See above Procedures: None Critical Care: None The chart was completed utilizing [employer] Speech voice recognition software. Grammatical errors, random word insertions, pronoun errors, and incomplete sentences are an occasional consequence of this system due to software limitations, ambient noise, and hardware issues. Any formal questions or concerns about the content, text, or information contained within the body of this dictation should be directly addressed to the physician for clarification. Past Med/Surg History Problem List (Updated 06/02/25 @ 19:06 by Chance Peñaloza DO) Non-ST elevation NH (NSTEMI) (Acute) Atypical chest pain (Acute) Atrial fibrillation with rapid ventricular response (Acute) Urinary incontinence Proteinuria Infection of left mastoid bowl Situational anxiety Essential tremor Mixed conductive and sensorineural hearing loss of left ear with restricted hearing of right ear hx of mastoid surgery Sensorineural hearing loss (SNHL) of right ear with restricted hearing of left ear COVID-19 (Acute) Chronic kidney disease, stage 3a Presence of drug-eluting stent in anterior descending branch of left coronary artery Abnormal nuclear stress test Fatigue Chest pain Coronary artery disease group home current use of anticoagulant therapy Antiplatelet or antithrombotic long-term use Hyperlipidemia Hypertension Atrial fibrillation (Chronic) Lumbago (Chronic) Irritable bowel syndrome (Chronic) Hypothyroidism, unspecified (Chronic) Medical History Degenerative disc disease Macular degeneration Hypothyroidism Myocardial Infarction NSTEMI (non-ST elevated myocardial infarction) Surgical History History of colonoscopy History of tooth extraction History of cataract surgery History of heart artery stent History of ear surgery History of tonsillectomy History of appendectomy Family History Father Family history of diabetes mellitus Sister Family history of diabetes mellitus Social History Smoking Status: Never smoker Second Hand Exposure: No; Do You Dip or Chew Tobacco: No; Hx Alcohol Use: No Hx Substance Use: No Preferred Language: Turkish Communication Ability: Effective Visual Impairment: No Limitations Hearing Ability: Hard of Hearing Cartography Supervisor Required: No Beliefs That Will Affect Care: None Current Living Situation: Spouse current occupational status: retired Feels Safe at Home: Yes Diet: regular caffeine: Yes (1 coffee daily) Do you think of yourself as: straight/heterosexual Gender Identity: Female Assistive Devices: None Allergies Allergies Allergy/AdvReac Type Severity Reaction Status Date / Time adhesive Allergy Mild MAKES SKIN Verified 05/03/25 09:52 SORE atorvastatin Allergy Mild COUGH Verified 05/03/25 09:52 levothyroxine Allergy Mild GENERIC Verified 05/03/25 09:52 MADE HER DIZZY Home Meds Home Medications Medication Instructions Recorded Confirmed aspirin 81 mg chewable tablet 81 mg PO QAM #0 tabs 06/22/15 06/02/25 polyethylene glycol 3350 17 8.5 gm PO DAILY PRN Constipation 01/04/19 05/03/25 gram/dose oral powder (Miralax) cholecalciferol (vitamin D3) 50 2,000 unit PO DAILY 02/24/19 06/02/25 mcg (2,000 unit) tablet (Vitamin D3) glucosamine-chondroitin 167 mg-133 1 cap PO DAILY 02/24/19 05/03/25 mg capsule multivitamin 1 tab PO DAILY 02/24/19 05/03/25 vitamins A,C,W-vfwk-ifkjwx 2,148 2 tab PO DAILY 12/09/19 05/03/25 mcg-113 mg-45 mg-17.4 mg tablet (PreserVision AREDS) omega 3-jdc-rdl-fish oil 120 cap PO 06/11/23 05/03/25 mg-180 mg-500 mg capsule (Fish Oil) Previous Rx's Medication Instructions Recorded nitroglycerin 0.4 mg sublingual 0.4 mg sublingual UD PRN Chest 10/10/22 tablet (Nitrostat) Pain #20 tabs metoprolol succinate 25 mg 25 mg PO DAILY #90 tabs 12/28/24 tablet,extended release 24 hr propranolol 60 mg capsule,24 60 mg PO DAILY #90 caps 01/18/25 hr,extended release apixaban 2.5 mg tablet (Eliquis) 2.5 mg PO BID #180 tabs 01/21/25 rosuvastatin 20 mg tablet 20 mg PO HS #90 tabs 01/21/25 lorazepam 0.5 mg tablet 0.5 mg PO DAILY PRN anxiety #4 tabs 02/18/25 propranolol 80 mg capsule,24 80 mg PO DAILY #30 caps 02/18/25 hr,extended release losartan 50 mg tablet 50 mg PO DAILY #90 tabs 05/18/25 Results & Data (ED) Vital Signs Vital Signs - 24 hr 06/02/25 14:38 06/02/25 14:39 06/02/25 14:51 Temperature 36.3 C L Temperature Source Temporal Artery Scan Pulse Rate 110 H 110 H Pulse Rhythm Irregular Respiratory Rate 20 18 Respiratory Effort / Characteristics Non-Labored Spontaneous Respiratory Depth Normal Respiratory Pattern Regular Blood Pressure 129/85 Blood Pressure Mean 99 Pulse Oximetry 98 96 96 Oxygen Delivery Method Room Air Room Air Room Air Oxygen Flow Rate Sepsis Recent Fever Within 48 Hours No Sepsis New/Unexplained Change in Mental Status N/A Sepsis Action Taken by Nursing No Action Required Oxygen Flow Rate - Titration Fraction of Inspired Oxygen - Titration Pulse Oximetry Post Tiitration 06/02/25 15:07 06/02/25 15:30 06/02/25 16:00 Temperature Temperature Source Pulse Rate 120 H 126 H 118 H Pulse Rhythm Respiratory Rate 20 16 17 Respiratory Effort / Characteristics Respiratory Depth Respiratory Pattern Blood Pressure 117/70 126/96 122/91 Blood Pressure Mean 91 115 99 Pulse Oximetry 94 94 95 Oxygen Delivery Method Oxygen Flow Rate Sepsis Recent Fever Within 48 Hours Sepsis New/Unexplained Change in Mental Status Sepsis Action Taken by Nursing Oxygen Flow Rate - Titration Fraction of Inspired Oxygen - Titration Pulse Oximetry Post Tiitration 06/02/25 16:25 06/02/25 16:25 06/02/25 16:45 Temperature Temperature Source Pulse Rate 106 H 81 Pulse Rhythm Respiratory Rate 20 15 Respiratory Effort / Characteristics Respiratory Depth Respiratory Pattern Blood Pressure 107/77 96/73 L Blood Pressure Mean 82 75 Pulse Oximetry 87 L 89 L 97 Oxygen Delivery Method Nasal Cannula Oxygen Flow Rate 0 Sepsis Recent Fever Within 48 Hours Sepsis New/Unexplained Change in Mental Status Sepsis Action Taken by Nursing Oxygen Flow Rate - Titration 2 Fraction of Inspired Oxygen - Titration Pulse Oximetry Post Tiitration 98 06/02/25 17:00 06/02/25 17:15 06/02/25 17:15 Temperature Temperature Source Pulse Rate 61 65 Pulse Rhythm Respiratory Rate 20 27 H Respiratory Effort / Characteristics Respiratory Depth Respiratory Pattern Blood Pressure 117/75 122/70 Blood Pressure Mean 87 84 Pulse Oximetry 99 99 99 Oxygen Delivery Method Nasal Cannula Oxygen Flow Rate 2 Sepsis Recent Fever Within 48 Hours Sepsis New/Unexplained Change in Mental Status Sepsis Action Taken by Nursing Oxygen Flow Rate - Titration Fraction of Inspired Oxygen - Titration 0 Pulse Oximetry Post Tiitration 96 06/02/25 17:30 06/02/25 18:16 Temperature Temperature Source Pulse Rate 60 61 Pulse Rhythm Respiratory Rate 18 Respiratory Effort / Characteristics Respiratory Depth Respiratory Pattern Blood Pressure 130/75 Blood Pressure Mean 93 Pulse Oximetry 99 Oxygen Delivery Method Oxygen Flow Rate Sepsis Recent Fever Within 48 Hours Sepsis New/Unexplained Change in Mental Status Sepsis Action Taken by Nursing Oxygen Flow Rate - Titration Fraction of Inspired Oxygen - Titration Pulse Oximetry Post Tiitration Laboratory Data 06/02/25 15:07 06/02/25 15:07 Lab Results 06/02/25 06/02/25 06/02/25 Range/Units 15:07 16:33 18:14 WBC 5.90 (4.8-10.8) K/ul RBC 3.76 L (4.20-5.40) M/uL Hgb 12.1 (12.0-16.0) g/dL Hct 36.1 L (37.0-47.0) % MCV 96.0 (80.0-100.0) fL MCH 32.2 (25.0-34.0) pg MCHC 33.5 (32.0-36.0) g/dL RDW Std Deviation 47.9 H (36.4-46.3) fL RDW Coeff of [place] 13.5 (11.5-14.5) % Plt Count 115 L (130-400) K/uL MPV 11.2 (9.4-12.4) fL Immature Gran % (Auto) 0.3 % Neut % (Auto) 68.2 % Lymph % (Auto) 18.8 % [place] % (Auto) 7.8 % Eos % (Auto) 4.4 % Baso % (Auto) 0.5 % Neut # (Auto) 4.02 (1.40-6.50) K/uL Lymph # (Auto) 1.11 L (1.20-3.40) K/uL [place] # (Auto) 0.46 (0.11-0.59) K/uL Eos # (Auto) 0.26 (0.00-0.50) K/uL Baso # (Auto) 0.03 (0.00-0.20) K/uL Immature Gran # (Auto) 0.02 (0.01-0.20) K/uL PT 11.0 (9.0-12.0) Seconds INR 1.0 (0.9-1.1) APTT 27 (21-31) Seconds PTT Ratio 1.0 Sodium 139 (136-145) mmol/L Potassium 4.0 (3.5-5.1) mmol/L Chloride 106 (98-107) mmol/L Carbon Dioxide 29 (21-32) mmol/L Anion Gap 4 (3-11) BUN 25 H (6-23) mg/dl Creatinine 0.92 (0.6-1.2) mg/dl Est Cr Clr Drug Dosing 36.3 ml/min eGFR 59.89 BUN/Creatinine Ratio 27.2 H (10-20) Glucose 116 H (70-99(Fasting)) mg/dl Calcium 9.1 (8.6-10.3) mg/dl Magnesium 2.3 (1.7-2.4) mg/dl Total Bilirubin 0.6 (0.2-1.0) mg/dl AST 44 H (13-39) U/L ALT 42 (7-52) U/L Alkaline Phosphatase 83 (34-104) U/L Troponin I High Sens 23.0 H 73.1 H* D 150.0 H* D (0-14) pg/ml Total Protein 6.1 (6.0-8.3) gm/dl Albumin 3.5 (3.4-5.0) gm/dl Globulin 2.6 (2.5-4.0) gm/dl Albumin/Globulin Ratio 1.3 (0.9-2) Lipase 73 (11-82) U/L Administered Medications Discontinued Medications Aspirin (Aspirin Chew 324 Mg) 324 mg PO NOW STA Stop: 06/02/25 14:52 Last Admin: 06/02/25 15:22 Dose: 324 mg Documented By: rosie Diltiazem HCl (Diltiazem Hcl 5 Mg/Ml 5 Ml Vial) 15 mg IV NOW STA Stop: 06/02/25 16:00 Last Admin: 06/02/25 16:23 Dose: 15 mg Documented By: rosie Co-signed By: [place] Parenteral Electrolytes (Plasma-Lyte A Ph 7.4) 1,000 mls @ 999 mls/hr IV .Q1H1M ONE Stop: 06/02/25 16:11 Last Infusion: 06/02/25 16:24 Dose: Infused Documented By: rosie Admin: 06/02/25 15:23 Dose: 999 mls/hr Documented By: rosie Acetaminophen (Ofirmev) 1,000 mg in 100 mls @ 400 mls/hr IV NOW STA Stop: 06/02/25 16:07 Last Infusion: 06/02/25 16:46 Dose: Infused Documented By: rosie Admin: 06/02/25 16:31 Dose: 400 mls/hr Documented By: rosie Lidocaine (Lidocaine 5% 1 Patch) 1 patch TD NOW STA Stop: 06/02/25 15:54 Last Admin: 06/02/25 16:32 Dose: 1 patch Documented By: rosie Imaging Data Radiologist's Impression: Chest X-Ray 06/02/25 14:51 EXAM: Radiograph of the Chest 1 View INDICATION: Pain TECHNIQUE: Frontal view of the chest. COMPARISON: 03/04/2024 FINDINGS: Lungs and pleural spaces: No consolidation or pulmonary edema. No pleural effusion or pneumothorax. Heart: Stable prominent shadow. Mediastinum: Normal contour. Bones/joints: No fracture, erosion or dislocation. Soft tissues: No abnormality noted. No radiopaque foreign body noted. Vasculature: Ectatic aorta. Lymph nodes: Right paratracheal calcified/granulomatous lymph nodes present. Upper abdomen: No abnormality noted. IMPRESSION: Stable chronic changes. No acute disease. ACT 112: N/A Electronically signed by Carlene Tavarez 06-02-2025 4:[address] 06/02/25 14:51 EXAM: CT Head Without Intravenous Contrast INDICATION: Not following commands. TECHNIQUE: Axial computed tomography images of the head/brain without intravenous contrast. Sagittal and/or coronal reformats are provided. Sagittal and coronal reformatted images were created and reviewed. This CT exam was performed using one or more of the following dose reduction techniques: automated exposure control, adjustment of the mA and/or kV according to patient size, and/or use of iterative reconstruction technique. COMPARISON: 03/21/2022 FINDINGS: Limitations: None. Brain and extra-axial spaces: There is age appropriate cortical atrophy and chronic ischemic periventricular white matter hypodensity. No acute infarct, hemorrhage or mass noted. Bones/joints: No acute changes. Soft tissues: No acute abnormality noted. Vasculature: No acute abnormality noted. Sinuses: No layering fluid in the visualized portions of the paranasal sinuses. Mastoid air cells: No mastoid effusion. Orbits: No acute abnormality noted. IMPRESSION: Cerebral atrophy. No acute changes. ACT 112: N/A Electronically signed by Carlene Tavarez 06-02-2025 3:31 PM Discharge Plan Visit Data Chief Complaint: Dizziness Stated Complaint: DIZZY, LIGHT HEADED, NAUSEA, PN IN HEAD, LT ARM ED Provider: Chance Peñaloza Discharge Problem: Atrial fibrillation with rapid ventricular response, Atypical chest pain, Non- ST elevation NH (NSTEMI) Patient Disposition: Admitted As Inpatient Condition: Serious Forms Stand Alone Forms: My [facility] Prescriptions Prescriptions: No Action aspirin 81 mg Tablet,Chewable 81 mg PO QAM Qty: 0 Eliquis 2.5 mg tablet 2.5 mg PO BID Qty: 180 3RF rosuvastatin 20 mg tablet 20 mg PO HS Qty: 90 3RF losartan 50 mg tablet 50 mg PO DAILY Qty: 90 3RF nitroglycerin [Nitrostat] 0.4 mg tablet, sublingual 0.4 mg Sublingual UD PRN (Reason: Chest Pain) Qty: 20 2RF Rx Instructions: Can repeat in 5 minutes and 10 minutes if still with chest pain. Fish Oil 120-180-500 mg capsule PO polyethylene glycol 3350 [Miralax] 17 gram/dose powder 8.5 gm PO DAILY PRN (Reason: Constipation) propranolol 60 mg capsule,extended release 24 hr 60 mg PO DAILY Qty: 90 2RF propranolol 80 mg capsule,extended release 24hr 80 mg PO DAILY Qty: 30 3RF lorazepam 0.5 mg tablet 0.5 mg PO DAILY PRN (Reason: anxiety) Qty: 4 0RF Rx Instructions: take one at the time of flight; may repeat in one hour if needed; max 2 per flight metoprolol succinate 25 mg tablet extended release 24 hr 25 mg PO DAILY Qty: 90 3RF Hold Instructions: New medication multivitamin Tablet 1 tab PO DAILY cholecalciferol (vitamin D3) [Vitamin D3] 2,000 unit Tablet 2,000 unit PO DAILY glucosamine-chondroitin 167-133 mg Capsule 1 cap PO DAILY PreserVision AREDS 7,160-113-100 [id number] tablet 2 tab PO DAILY Referrals Referrals: Chad Cohen MD [Primary Care Provider] -
[2025-06-02 15:53] LABS: Alanine Aminotransferase 42.0 U/L (7-52); Albumin Globulin Ratio 1.3 (0.9-2); Albumin Level 3.5 gm/dl (3.4-5.0); Alkaline Phosphatase 83.0 U/L (34-104); Anion Gap 4.0 (3-11); Bilirubin,Total 0.6 mg/dl (0.2-1.0); Blood Urea Nitrogen 25.0 mg/dl (6-23); Calcium 9.1 mg/dl (8.6-10.3); Carbon Dioxide 29.0 mmol/L (21-32); Chloride 106.0 mmol/L (98-107); Creatinine Clr Calc Pharmacy 36.3 ml/min; Globulin 2.6 gm/dl (2.5-4.0); Glucose 116.0 mg/dl (70-99(Fasting)); Lipase 73.0 U/L (11-82); Potassium 4.0 mmol/L (3.5-5.1); Sodium 139.0 mmol/L (136-145); Total Protein 6.1 gm/dl (6.0-8.3)
[2025-06-02 16:02] LABS: INR 1.0 (0.9-1.1); Partial Thromboplastin Time 27 Seconds (21-31); Prothrombin Time 11.0 Seconds (9.0-12.0)
--- NOTE | 2025-06-02 16:30 | XRay Report ---
EXAM: Radiograph of the Chest 1 View INDICATION: Pain TECHNIQUE: Frontal view of the chest. COMPARISON: 03/04/2024 FINDINGS: Lungs and pleural spaces: No consolidation or pulmonary edema. No pleural effusion or pneumothorax. Heart: Stable prominent shadow. Mediastinum: Normal contour. Bones/joints: No fracture, erosion or dislocation. Soft tissues: No abnormality noted. No radiopaque foreign body noted. Vasculature: Ectatic aorta. Lymph nodes: Right paratracheal calcified/granulomatous lymph nodes present. Upper abdomen: No abnormality noted. IMPRESSION: Stable chronic changes. No acute disease. ACT 112: N/A Electronically signed by Carlene Tavarez 06-02-2025 4:29 PM
[2025-06-02] MEDS: ACETAMINOPHEN 1,000 MG/100 ML VIAL IV STA (16:31)
[2025-06-02] MEDS: LIDOCAINE 5% 1 PATCH TD STA (16:32)
[2025-06-02 17:03] LABS: Magnesium 2.3 mg/dl (1.7-2.4)
--- NOTE | 2025-06-02 17:36 | History & Physical Report ---
"Date of Service June 02, 2025 Assessment & Plan (1) Atrial fibrillation with rapid ventricular response: (2) Elevated troponin: (3) Presence of drug-eluting stent in anterior descending branch of left coronary artery: Plan This patient is an 89-year-old female with PMH of CAD s/p PCI to LAD (2017) and PAF (on apixaban) who presented on 06/02 for lightheadedness, nausea, headache, and left shoulder and arm pain. Found to be in atrial fibrillation with RVR on arrival. #Atrial fibrillation with RVR | elevated troponin EKG on arrival revealed atrial fibrillation with RVR Converted back to NSR after diltiazem 15 mg IV x 1 Rate controlled at time of admission Troponin elevated 23 -> 73 -> 150 on arrival; trend q6h to peak Last echocardiogram/04/2023 revealed LVEF at >70% Repeat echocardiogram ordered, pending Cardiology consult appreciated Known history of CAD; given patient's symptoms resolved after she she converted back to a NSR, suspect her cardiac pain was linked to being in A-fib with RVR While NSTEMI/ACS remains within the differential, we will plan to continue patient on Eliquis for now Would only convert from Eliquis to heparin drip for potential catheterization if recurrence of back/shoulder pain while in NSR Admit to PCU telemetry Recommend starting patient on amiodarone drip should patient convert back to A- fib with RVR Continuous telemetry monitoring while inpatient #CAD s/p REYNA Admission to [facility] August 27, 2017; patient underwent a cardiac catheterization for presumed ACS/NSTEMI at that time Note: Review of patient's EKG from 2018 revealed NSR at the time Continue aspirin 81 mg p.o. daily #HLD Continue atorvastatin A.m. 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 Burleson's attestation for any additional notes/changes to treatment plan. History of Present Illness Chief Complaint: Lightheadedness, nausea, left shoulder pain radiating down the left arm Primary Care Provider: Chad Cohen MD Mrs. Addison is an 89-year-old female with PMH of CAD s/p PCI to LAD (2017), HLD, HTN, atrial fibrillation (on apixaban), situational anxiety, essential tremor, and urinary incontinence. She presented on 06/02 for lightheadedness, headache, nausea, upper back pain, and left shoulder/arm pain that started around noon today. Her pain lasted for approximately 1200 to 1430 when she arrived in the ED. She reports this occurs 2-3 times per year. She also reports she had a brief episode of chest palpitations earlier today. No SOB at rest. No GABRIEL. Patient reports that her left chest pain/shoulder pain was rated at 9 out of 10 at its worst, and it did radiated down her left arm. While she is chest pain- free at time of admission, she is still having numbness and tingling going down the left arm. She reports the distribution of her pain is similar to the pain she fell back in August 2017 (aching and tight sensation in her mid upper back with posterior headache at rest) at that time, she underwent a cardiac catheterization for presumed NSTEMI. Patient reports she took her regular morning medicines today, including her Eliquis. The only recent change in medications was that her losartan was doubled in May. She was also switched off of metoprolol and started on propranolol this fall due to resting tremors; this was coordinated by both cardiology and neurology (see most recent notes). Patient follows with Dr. Galvez (Cardiology). She denies smoking, tobacco use, or recent alcohol use. No supplemental oxygen at baseline or CPAP at night. No sick contacts to her knowledge. Patient's SpO2 was 99% on 2 LNC at time of admission; vitals otherwise stable (heart rate converted to NSR at 61 BPM). ED course: Aspirin 324 mg p.o. Acetaminophen 1000 mg IV Diltiazem 15 mg IV Plasma-Lyte 1000 mL IV Lidocaine patch ROS: Patient endorses headache (resolved), lightheadedness/dizziness (resolved), chest pain, chest palpitations, left shoulder pain, and numbness/tingling going down the left arm. Patient denies fever, chills, night-sweats, SOB at rest, GABRIEL, pleuritic CP, abdominal pain, N/V/D, changes in urinary/bowel habits, blood in the urine/stool, or melena. Allergies Allergy/AdvReac Type Severity Reaction Status Date / Time adhesive Allergy Mild MAKES SKIN Verified 05/03/25 09:52 SORE atorvastatin Allergy Mild COUGH Verified 05/03/25 09:52 levothyroxine Allergy Mild GENERIC Verified 05/03/25 09:52 MADE HER DIZZY Home Medications Medication Instructions Recorded Confirmed Type polyethylene glycol 3350 17 8.5 gm PO DAILY PRN Constipation 01/04/19 06/02/25 History gram/dose oral powder (Miralax) cholecalciferol (vitamin D3) 50 2,000 unit PO DAILY 02/24/19 06/02/25 History mcg (2,000 unit) tablet (Vitamin D3) glucosamine-chondroitin 167 mg-133 1 cap PO DAILY 02/24/19 06/02/25 History mg capsule multivitamin 1 tab PO DAILY 02/24/19 06/02/25 History vitamins A,C,W-pmky-agdnpl 2,148 2 tab PO DAILY 12/09/19 06/02/25 History mcg-113 mg-45 mg-17.4 mg tablet (PreserVision AREDS) nitroglycerin 0.4 mg sublingual 0.4 mg sublingual UD PRN Chest 10/10/22 06/02/25 Rx tablet (Nitrostat) Pain #20 tabs omega 5-ozv-vty-fish oil 120 1 cap PO DAILY 06/11/23 06/02/25 History mg-180 mg-500 mg capsule (Fish Oil) propranolol 60 mg capsule,24 60 mg PO DAILY #90 caps 01/18/25 06/02/25 Rx hr,extended release apixaban 2.5 mg tablet (Eliquis) 2.5 mg PO BID #180 tabs 01/21/25 06/02/25 Rx rosuvastatin 20 mg tablet 20 mg PO HS #90 tabs 01/21/25 06/02/25 Rx lorazepam 0.5 mg tablet 0.5 mg PO DAILY PRN anxiety #4 tabs 02/18/25 06/02/25 Rx losartan 50 mg tablet 50 mg PO DAILY #90 tabs 05/18/25 06/02/25 Rx amlodipine 2.5 mg tablet 2.5 mg PO HS 1 month #30 tabs 06/04/25 Rx clopidogrel 75 mg tablet (Plavix) 75 mg PO DAILY 1 month #30 tabs 06/04/25 Rx pantoprazole 40 mg tablet,delayed 40 mg PO DAILY 1 month #30 tabs 06/04/25 Rx release Past Med/Surg History Problem List (Updated 06/03/25 @ 11:13 by Cruzito Raymundo MD) Valvular heart disease Elevated troponin Non-ST elevation [place] (NSTEMI) (Acute) Atypical chest pain (Acute) Atrial fibrillation with rapid ventricular response (Acute) Urinary incontinence Proteinuria Infection of left mastoid bowl Situational anxiety Essential tremor Mixed conductive and sensorineural hearing loss of left ear with restricted hearing of right ear hx of mastoid surgery Sensorineural hearing loss (SNHL) of right ear with restricted hearing of left ear COVID-19 (Acute) Chronic kidney disease, stage 3a Presence of drug-eluting stent in anterior descending branch of left coronary artery Abnormal nuclear stress test Fatigue Chest pain Coronary artery disease half-way current use of anticoagulant therapy Antiplatelet or antithrombotic long-term use Hyperlipidemia Hypertension Atrial fibrillation (Chronic) Lumbago (Chronic) Irritable bowel syndrome (Chronic) Hypothyroidism, unspecified (Chronic) Medical History Degenerative disc disease Macular degeneration Hypothyroidism Myocardial Infarction NSTEMI (non-ST elevated myocardial infarction) Surgical History History of colonoscopy History of tooth extraction History of cataract surgery History of heart artery stent History of ear surgery History of tonsillectomy History of appendectomy Family History Father Family history of diabetes mellitus Sister Family history of diabetes mellitus Social History Smoking Status: Never smoker Second Hand Exposure: No; Do You Dip or Chew Tobacco: No; Hx Alcohol Use: No Hx Substance Use: No Preferred Language: Ukrainian Communication Ability: Effective Visual Impairment: No Limitations Hearing Ability: Hard of Hearing Canary Raiser Required: No Beliefs That Will Affect Care: None Current Living Situation: Spouse current occupational status: retired Feels Safe at Home: Yes Diet: regular caffeine: Yes (1 coffee daily) Do you think of yourself as: straight/heterosexual Gender Identity: Female Assistive Devices: None Review of Systems Review of Systems: See HPI above Physical Exam Physical Exam: General: no acute distress; pleasant affect; anxious; family at bedside; non- toxic appearing; cooperative; frail-appearing; SpO2 99% on 2L NC HEENT: normocephalic, atraumatic; PERRLA; vision intact; hard of hearing Neck: supple; trachea midline; patient demonstrates ability to shrug shoulders against resistance without eliciting pain Skin: warm, dry without signs of tenting; no cyanosis; no rashes, bruising, lesions, or erythema noted CV: chest wall NTP; no rashes or bruising appreciated on the chest wall or left flank; RR around 60 bpm; S1/S2 normal; no murmurs/rubs/gallops; pulses intact and symmetric at radial, DP, and PT Lungs: no acute respiratory distress; symmetrical chest wall expansion; clear breath sounds across all lung romero w/o adventitious sounds; no wheezing ABD: Soft, NTP; BS present; no rebound/guarding; no distention MSK: no tics or fasciculations; no edema noted in the LEs b/l, nonerythematous; 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 Neuro: A&Ox3; normal mood and affect; fluent speech; patient reports sensation is intact and symmetric in the upper and lower extremities bilaterally assessed via light touch Results & Data Results & Data Vital Signs (Past 12 Hours) Vital Signs Temp Pulse Resp BP Pulse Ox O2 Del Method 06/02/25 15:30 126 H 16 126/96 94 06/02/25 15:07 120 H 20 117/70 94 06/02/25 14:51 110 H 18 96 Room Air 06/02/25 14:39 36.3 C L 110 H 20 129/85 96 Room Air 06/02/25 14:38 98 Room Air Laboratory Results Abnormal lab results 06/02/25 06/02/25 Range/Units 15:07 16:33 RBC 3.76 L (4.20-5.40) M/uL Hct 36.1 L (37.0-47.0) % RDW Std Deviation 47.9 H (36.4-46.3) fL Plt Count 115 L (130-400) K/uL Lymph # (Auto) 1.11 L (1.20-3.40) K/uL BUN 25 H (6-23) mg/dl BUN/Creatinine Ratio 27.2 H (10-20) Glucose 116 H (70-99(Fasting)) mg/dl AST 44 H (13-39) U/L Troponin I High Sens 23.0 H 73.1 H* D (0-14) pg/ml Diagnostic Findings Chest X-Ray 06/02/25 14:51 EXAM: Radiograph of the Chest 1 View INDICATION: Pain TECHNIQUE: Frontal view of the chest. COMPARISON: 03/04/2024 FINDINGS: Lungs and pleural spaces: No consolidation or pulmonary edema. No pleural effusion or pneumothorax. Heart: Stable prominent shadow. Mediastinum: Normal contour. Bones/joints: No fracture, erosion or dislocation. Soft tissues: No abnormality noted. No radiopaque foreign body noted. Vasculature: Ectatic aorta. Lymph nodes: Right paratracheal calcified/granulomatous lymph nodes present. Upper abdomen: No abnormality noted. IMPRESSION: Stable chronic changes. No acute disease. ACT 112: N/A Electronically signed by Carlene Tavarez 06-02-2025 4:[address] 06/02/25 14:51 EXAM: CT Head Without Intravenous Contrast INDICATION: Not following commands. TECHNIQUE: Axial computed tomography images of the head/brain without intravenous contrast. Sagittal and/or coronal reformats are provided. Sagittal and coronal reformatted images were created and reviewed. This CT exam was performed using one or more of the following dose reduction techniques: automated exposure control, adjustment of the mA and/or kV according to patient size, and/or use of iterative reconstruction technique. COMPARISON: 03/21/2022 FINDINGS: Limitations: None. Brain and extra-axial spaces: There is age appropriate cortical atrophy and chronic ischemic periventricular white matter hypodensity. No acute infarct, hemorrhage or mass noted. Bones/joints: No acute changes. Soft tissues: No acute abnormality noted. Vasculature: No acute abnormality noted. Sinuses: No layering fluid in the visualized portions of the paranasal sinuses. Mastoid air cells: No mastoid effusion. Orbits: No acute abnormality noted. IMPRESSION: Cerebral atrophy. No acute changes. ACT 112: N/A Electronically signed by Carlene Tavarez 06-02-2025 3:31 PM ECG Additional Comments: ECG on arrival revealed atrial fibrillation at 126 bpm; QTc 434 Repeat ECG after Cardizem administration revealed NSR at 62 bpm; QTc 426 Code Status & VTE Plan Code Status DNR/DNI (confirmed by Dr. Burleson) VTE Prophylaxis Plan VTE Prophylaxis will be ordered: Yes Supervising Physician Co-Signing Physician Notes I personally saw and examined the patient. I independently reviewed the labs, EKG, imaging, problem list, medication list, past medical history and family history. I verified all jerry points and agree with Jonathon Galeano PA-C with the following exceptions and/or additions: 89 year old female with known paroxysmal atrial fibrillation presents to the ER with sudden onset neck and arm pain. Reportedly has similar symptoms with prior a. fib episodes but on this occasion she was with her daughter therefore decided to come to the ER. Has 2-3 episodes a year. No increase in frequency of these episodes. O/E HS RRR, no murmurs, Chest CTAB A/P Paroxysmal atrial fibrillation - despite short duration and infrequency of episodes we could opt for a better rhythm strategy with amiodarone given severity of the episodes and the fact she lives with her elderly . Will defer this decision to cardiology pending TTE and serial troponins overnight. Type 2 NSTEMI - do not suspect ACS. Suspect this is demand ischemia in setting of RVR with known CAD. Pending TTE and serial troponins I do not feel this needs further workup of this time given resolution of her symptoms with rhythm control after diltiazem converted back to NSR her symptoms resolved. Ok to continue apixaban. PG Care Time/CCT Total # of Minutes Spent Total Time Spent with Patient: Total time spent is greater than 50% in coordination of care (as documented) at patient's floor/unit and/or counseling patient: Coding [place] [address] INT INP/OBS CARE 3/75MIN Patient Type Established Medical Decision Making High Complexity Diagnoses Atrial fibrillation with rapid ventricular response I48.91 Elevated troponin R79.89 Presence of drug-eluting stent in anterior descending branch of left coronary artery Z95.5"
[2025-06-02] MEDS ORDERED: NITROGLYCERIN SL 0.4 MG/TAB TAB SL PRN (20:35)
[2025-06-02] MEDS ORDERED: MELATONIN 3 MG TAB PO PRN (20:35)
[2025-06-02] MEDS ORDERED: ONDANSETRON INJ 2 MG/ML 2 ML VIAL IV PRN (20:35)
[2025-06-02] MEDS: ROSUVASTATIN CALCIUM 20 MG TAB PO SCH (21:09)
[2025-06-02] MEDS: REMOVE LIDODERM PATCH SCH (21:09)
[2025-06-02] MEDS: APIXABAN 2.5 MG TAB PO SCH (21:09)
[2025-06-03 06:22] LABS: Hematocrit (blood only) 32.3 % (37.0-47.0); Hemoglobin 10.8 g/dL (12.0-16.0); Immature Granulocytes # (auto) 0.01 K/uL (0.01-0.20); Immature Granulocytes % (auto) 0.2 %; Mean Corpuscular Hemoglobin 31.9 pg (25.0-34.0); Mean Corpuscular Volume 95.3 fL (80.0-100.0); Platelet Count 103 K/uL (130-400); RDW Standard Deviation 47.7 fL (36.4-46.3); Red Blood Count 3.39 M/uL (4.20-5.40); White Blood Count 4.33 K/ul (4.8-10.8)
[2025-06-03 06:41] LABS: Anion Gap 4.0 (3-11); Blood Urea Nitrogen 18.0 mg/dl (6-23); Calcium 7.9 mg/dl (8.6-10.3); Carbon Dioxide 28.0 mmol/L (21-32); Chloride 111.0 mmol/L (98-107); Cholesterol 86.0 mg/dl (0-200); Creatinine Clr Calc Pharmacy 41.3 ml/min; Glucose 95.0 mg/dl (70-99(Fasting)); HDL Cholesterol 49.0 mg/dl; Potassium 3.8 mmol/L (3.5-5.1); Sodium 143.0 mmol/L (136-145); Triglycerides 60.0 mg/dl (0-150)
[2025-06-03] MEDS: ASPIRIN 81 MG ECTAB PO SCH (09:08)
[2025-06-03] MEDS: LOSARTAN POTASSIUM 50 MG TAB PO SCH (09:08)
[2025-06-03] MEDS: PROPRANOLOL HCL 60 MG LA CAP PO SCH (09:09)
--- NOTE | 2025-06-03 09:57 | XCELERA ---
[id number]
[2025-06-03] MEDS: POLYETHYLENE (MIRALAX) 17 GM PACK PO PRN (10:29)
--- NOTE | 2025-06-03 11:18 | Cardiology Consultation ---
Date of Consultation June 03, 2025 Assessment & Plan (1) Non-ST elevation CT (NSTEMI): (2) Elevated troponin: (3) Atrial fibrillation with rapid ventricular response: (4) Atypical chest pain: (5) Valvular heart disease: Plan 1. NSTEMI: She did have a mild rise in her cardiac biomarkers. This is indicative of mild injury. Several possible mechanisms to include elevated blood pressure, rapid atrial fibrillation in the setting of likely coronary disease and possibly an acute coronary syndrome. It is curious that she has symptoms of this nature twice yearly without any adverse effects. 1 concerning aspect would be the similarity of her current symptoms to that experience in 2018. However, at that time she was noted to have some coronary stenosis there was not a mention of an acute coronary event. We discussed several options for management to include repeat coronary angiography and possible intervention of known residual coronary disease. Alternatively, we could improve her blood pressure management and treat her with a noninvasive strategy adding Plavix to her current medical regimen. Patient is currently stable without symptoms and anxious for discharge. I do not think there is an emergent indication for catheterization. She is also taking her Eliquis today and eaten. Given the current weather situation there are no options for transfer if there were a complication from any coronary intervention. She will discuss her options with her daughter and we can decide on a strategy moving forward. 2. Valvular heart disease: She has an element of mild aortic and mitral regurgitation. Not a clinical concern. This can be followed over time, but this does not likely represent a clinical concern in the course of her lifetime. 3. Atrial fibrillation: She has a history of paroxysmal atrial fibrillation. Curiously, she has not been bothered by symptoms of atrial fibrillation for some time. She did present in atrial fibrillation with rapid rates and this could represent the etiology of her mild biomarker elevation. She spontaneously returned to sinus rhythm. She is on appropriate systemic anticoagulation which can be continued. Currently on propranolol as well for its neurologic effects. 4. Elevated troponin: Mild elevation. Poss related to several issues including higher blood pressures, rapid atrial fibrillation, both in the setting of known coronary disease. Less likely but still possible and acute coronary syndrome as mentioned above. History of Present Illness Reason for Consultation: Atrial fibrillation, chest pain, elevated troponin Requesting Physician: Froylan Attending Physician: Austin Moseley History of Present Illness The patient is an 89-year-old woman with a history of coronary artery disease having previously undergone percutaneous intervention to a diagonal branch in 2018. She also has a history of paroxysmal atrial fibrillation. She presented to emergency room yesterday due to symptoms of left arm neck and head pain. She states that her symptoms started with a headache in the back of her head. This then began to involve her neck and left arm. She felt that the symptoms were similar to those she experienced in 2018. She took her blood pressure and noted that the blood pressure was high. He decided to come to the emergency room for an evaluation. She believes the episode lasted approximately 2 hours in duration. There was no particular intervention that relieved her symptoms but it did resolve. She has not had any recurrence that she has been here. Curiously, she states that she had similar symptoms approximately twice per year. She does not have symptoms in between episodes. She reports being ambulatory and able to perform routine activity without chest or arm discomfort. She does suffer from breathing difficulty. In the past she was having fairly severe palpitations. According to the patient she was on amiodarone for a brief period of time but this produced side effects. When she stopped the amiodarone her symptoms of palpitations have resolved. She states that last evening she had a very mild sense of palpitation but not nearly as severe as she had in the past. She generally is not bothered by palpitations anymore. Allergies Allergy/AdvReac Type Severity Reaction Status Date / Time adhesive Allergy Mild MAKES SKIN Verified 05/03/25 09:52 SORE atorvastatin Allergy Mild COUGH Verified 05/03/25 09:52 levothyroxine Allergy Mild GENERIC Verified 05/03/25 09:52 MADE HER DIZZY Home Medications Medication Instructions Recorded Confirmed Type aspirin 81 mg chewable tablet 81 mg PO QAM #0 tabs 06/22/15 06/02/25 History polyethylene glycol 3350 17 8.5 gm PO DAILY PRN Constipation 01/04/19 06/02/25 History gram/dose oral powder (Miralax) cholecalciferol (vitamin D3) 50 2,000 unit PO DAILY 02/24/19 06/02/25 History mcg (2,000 unit) tablet (Vitamin D3) glucosamine-chondroitin 167 mg-133 1 cap PO DAILY 02/24/19 06/02/25 History mg capsule multivitamin 1 tab PO DAILY 02/24/19 06/02/25 History vitamins A,C,U-uflz-bruivm 2,148 2 tab PO DAILY 12/09/19 06/02/25 History mcg-113 mg-45 mg-17.4 mg tablet (PreserVision AREDS) nitroglycerin 0.4 mg sublingual 0.4 mg sublingual UD PRN Chest 10/10/22 06/02/25 Rx tablet (Nitrostat) Pain #20 tabs omega 5-ihl-hne-fish oil 120 1 cap PO DAILY 06/11/23 06/02/25 History mg-180 mg-500 mg capsule (Fish Oil) propranolol 60 mg capsule,24 60 mg PO DAILY #90 caps 01/18/25 06/02/25 Rx hr,extended release apixaban 2.5 mg tablet (Eliquis) 2.5 mg PO BID #180 tabs 01/21/25 06/02/25 Rx rosuvastatin 20 mg tablet 20 mg PO HS #90 tabs 01/21/25 06/02/25 Rx lorazepam 0.5 mg tablet 0.5 mg PO DAILY PRN anxiety #4 tabs 02/18/25 06/02/25 Rx losartan 50 mg tablet 50 mg PO DAILY #90 tabs 05/18/25 06/02/25 Rx Patient History Medical History Degenerative disc disease Macular degeneration Hypothyroidism Myocardial Infarction NSTEMI (non-ST elevated myocardial infarction) Surgical History History of colonoscopy History of tooth extraction History of cataract surgery History of heart artery stent History of ear surgery History of tonsillectomy History of appendectomy Family History Father Family history of diabetes mellitus Sister Family history of diabetes mellitus Social History Smoking Status: Never smoker Second Hand Exposure: No; Do You Dip or Chew Tobacco: No; Hx Alcohol Use: No Hx Substance Use: No Preferred Language: Greek Communication Ability: Effective Visual Impairment: No Limitations Hearing Ability: Hard of Hearing [place] Hand Required: No Beliefs That Will Affect Care: None Current Living Situation: Spouse current occupational status: retired Feels Safe at Home: Yes Diet: regular caffeine: Yes (1 coffee daily) Do you think of yourself as: straight/heterosexual Gender Identity: Female Assistive Devices: None Review of Systems Review of Systems: Per HPI Physical Exam Physical Exam: She is alert and oriented x3. Mood affect appear normal. She answered all questions appropriately. HEENT: Sclerae are anicteric. Pupils are equal and reactive to light and accommodation. Extraocular movements were intact. Neuro: Cranial nerves intact Lungs: Lungs are clear to auscultation bilaterally. There are no rales wheezes or rhonchi. She has normal respiratory effort without use of accessory muscles. There is normal pulmonary excursion. Cardiac: The rhythm was regular. S1 and S2 were normal. There are no murmurs on examination. The PMI was not markedly displaced on palpation. Extremities: Patient has bilateral radial pulses that are equal in intensity. There is no evidence cyanosis or clubbing. There was no evidence of significant peripheral edema bilaterally. Skin: There are no rashes noted on examination today. Results & Data Vital Signs (Past 12 Hours) Vital Signs Temp Pulse Pulse Pulse Resp BP Pulse Ox 06/03/25 08:03 36.9 C 59 L 18 180/72 H 96 06/03/25 05:32 55 L 06/03/25 04:14 36.5 C 56 L 16 135/66 93 O2 Del Method 06/03/25 08:03 Room Air 06/03/25 05:32 06/03/25 04:14 Room Air Laboratory Results Abnormal Lab Results 06/02/25 06/02/25 06/02/25 15:07 16:33 18:14 WBC 5.90 RBC 3.76 L Hgb 12.1 Hct 36.1 L MCV 96.0 MCH 32.2 MCHC 33.5 RDW Std Deviation 47.9 H RDW Coeff of [place] 13.5 Plt Count 115 L MPV 11.2 Immature Gran % (Auto) 0.3 Neut % (Auto) 68.2 Lymph % (Auto) 18.8 [place] % (Auto) 7.8 Eos % (Auto) 4.4 Baso % (Auto) 0.5 Neut # (Auto) 4.02 Lymph # (Auto) 1.11 L [place] # (Auto) 0.46 Eos # (Auto) 0.26 Baso # (Auto) 0.03 Immature Gran # (Auto) 0.02 PT 11.0 INR 1.0 APTT 27 PTT Ratio 1.0 Sodium 139 Potassium 4.0 Chloride 106 Carbon Dioxide 29 Anion Gap 4 BUN 25 H Creatinine 0.92 Est Cr Clr Drug Dosing 36.3 eGFR 59.89 BUN/Creatinine Ratio 27.2 H Glucose 116 H Calcium 9.1 Magnesium 2.3 Total Bilirubin 0.6 AST 44 H ALT 42 Alkaline Phosphatase 83 Troponin I High Sens 23.0 H 73.1 H* D 150.0 H* D Total Protein 6.1 Albumin 3.5 Globulin 2.6 Albumin/Globulin Ratio 1.3 Triglycerides Cholesterol LDL Cholesterol, Calc VLDL Cholesterol, Calc HDL Cholesterol Cholesterol/HDL Ratio Lipase 73 06/03/25 06/03/25 00:30 05:59 WBC 4.33 L RBC 3.39 L Hgb 10.8 L Hct 32.3 L MCV 95.3 MCH 31.9 MCHC 33.4 RDW Std Deviation 47.7 H RDW Coeff of [place] 13.6 Plt Count 103 L MPV 11.3 Immature Gran % (Auto) 0.2 Neut % (Auto) 50.9 Lymph % (Auto) 31.6 [place] % (Auto) 11.5 Eos % (Auto) 5.1 Baso % (Auto) 0.7 Neut # (Auto) 2.20 Lymph # (Auto) 1.37 [place] # (Auto) 0.50 Eos # (Auto) 0.22 Baso # (Auto) 0.03 Immature Gran # (Auto) 0.01 PT INR APTT PTT Ratio Sodium 143 Potassium 3.8 Chloride 111 H Carbon Dioxide 28 Anion Gap 4 BUN 18 Creatinine 0.81 Est Cr Clr Drug Dosing 41.3 eGFR 69.78 BUN/Creatinine Ratio 22.2 H Glucose 95 Calcium 7.9 L Magnesium Total Bilirubin AST ALT Alkaline Phosphatase Troponin I High Sens 350.2 H* D 329.8 H* Total Protein Albumin Globulin Albumin/Globulin Ratio Triglycerides 60 Cholesterol 86 LDL Cholesterol, Calc 25 VLDL Cholesterol, Calc 12 HDL Cholesterol 49 Cholesterol/HDL Ratio 1.8 Lipase Diagnostic Findings Echocardiogram 06/03/2025: Normal LV systolic function ejection fraction of 60 to 65%. Normal wall motion. Mild aortic regurgitation. Mild mitral regurgitation. Mildly elevated pulmonary systolic pressures. PG Care Time/CCT Total # of Minutes Spent Total Time Spent with Patient: Total time spent is greater than 50% in coordination of care (as documented) at patient's floor/unit and/or counseling patient: Coding Level of Care Code 89590 INT INP/OBS CARE 75MIN Diagnoses Non-ST elevation CT (NSTEMI) I21.4 Elevated troponin R79.89 Atrial fibrillation with rapid ventricular response I48.91 Atypical chest pain R07.89 Valvular heart disease I38
--- NOTE | 2025-06-03 13:43 | Electrocardiogram Report ---
Test Reason : Blood Pressure : */* mmHG Vent. Rate : 62 BPM Atrial Rate : 62 BPM P-R Int : 190 ms QRS Dur : 66 ms QT Int : 420 ms P-R-T Axes : 33 -12 -11 degrees QTcB Int : 426 ms Normal sinus rhythm Nonspecific T wave abnormality Abnormal ECG When compared with ECG of 01-Mar-2024 10:47, Nonspecific T wave abnormality, improved in Lateral leads QT has lengthened Confirmed by Cruzito Raymundo ([id number]) on 06/03/2025 1:43:13 PM Referred By: REFERRED SELF Confirmed By: Cruzito Raymundo
--- NOTE | 2025-06-03 15:43 | Hospitalist Progress Note ---
"Date of Service June 03, 2025 Assessment & Plan (1) Non-ST elevation [place] (NSTEMI): (2) Hypertension: (3) Hyperlipidemia: (4) Coronary artery disease: (5) Atrial fibrillation with rapid ventricular response: (6) Elevated troponin: Plan This patient is an 89-year-old female with PMH of CAD s/p PCI to LAD (2017) and PAF (on apixaban) who presented on 06/02 for lightheadedness, nausea, headache, and left shoulder and arm pain. Found to be in atrial fibrillation with RVR on arrival. #Atrial fibrillation with RVR | elevated troponin EKG on arrival revealed atrial fibrillation with RVR Converted back to NSR after diltiazem 15 mg IV x 1 Rate controlled at time of admission Troponin elevated 150 -> 350; Though 350.2 is the peak and is now trending downwards. Trend q6h Last echocardiogram/04/2023 revealed LVEF at >70% Repeat echocardiogram ordered. Left ventricular systolic function and wall motion is normal, mild aortic and mitral regurg, right ventricular systolic pressure elevated at 40-50mmHg, inferior vena cava is mildly dilated Cardiology consult appreciated Known history of CAD; given patient's symptoms resolved after she she converted back to a NSR, suspect her cardiac pain was linked to being in A-fib with RVR While NSTEMI/ACS remains within the differential, we will plan to continue patient on Eliquis for now Would only convert from Eliquis to heparin drip for potential catheterization if recurrence of back/shoulder pain while in NSR Admit to PCU telemetry Recommend starting patient on amiodarone drip should patient convert back to A- fib with RVR Continuous telemetry monitoring while inpatient #CAD s/p REYNA Admission to [facility] August 27, 2017; patient underwent a cardiac catheterization for presumed ACS/NSTEMI at that time Note: Review of patient's EKG from 2018 revealed NSR at the time Continue aspirin 81 mg p.o. daily #HLD Continue atorvastatin Lipid panel came back unremarkable. LDL is 25. #HTN Note recent changes to antihypertensive medications: Switched from metoprolol -> propranolol in February to treat tremors Increase losartan dose from 25 -> 50mg daily a couple weeks [employer] Continue losartan. Propanol was held due to low HR. Gave one 0.1mg dose of clonidine due to patient's BP being 196/80. BP is now 173/76 (06/03 @ 4:55pm). Will give one dose of amodipine 5mg this evening, then start amlodipine 5mg in the AM Disposition: Admit to PCU telemetry VTE PPx: Jessica Admission and Anticipated Discharge Date Admission Date: June 02, 2025 Subjective Patient reports she feels better than yesterday. Denies chest pain, palpitations, shortness of breath, abdominal pain, and N/V/D. Saw patient later this afternoon and her BP was 196/80. Patient is asymptomatic and denies headache or any new blurry vision. She states that she has double vision but that is a chronic issue. Review of Systems Review of Systems: as per HPI Physical Exam Constitutional: WD/WN, vitals as above Eyes: + anicteric sclerae and EOM intact bilat erally Respiratory: normal respiratory effort, lungs clear to auscultation Cardiovascular: Rate/Rhythm: regular rate and regular rhythm Heart Sounds: normal S1 and normal S2; no murmur Extremities: no edema Gastrointestinal (Abdomen): Percussion/Palpation: abdomen soft; abdomen nontender Skin: no rashes, warm and dry Psychiatric: Eye Contact: good eye contact Speech: normal rate/rhythm/volume of speech Thought Process: goal directed thought process and linear/logical thought process Results & Data Results & Data Vital Signs (Past 12 Hours) Vital Signs Temp Pulse Pulse Pulse Resp BP Pulse Ox 06/03/25 12:00 37.2 C 65 16 196/80 H 96 06/03/25 08:03 36.9 C 59 L 18 180/72 H 96 06/03/25 05:32 55 L 06/03/25 04:14 36.5 C 56 L 16 135/66 93 O2 Del Method 06/03/25 12:00 Room Air 06/03/25 08:03 Room Air 06/03/25 05:32 06/03/25 04:14 Room Air Resident Activity Tracking Resident Involvement: Resident Care Provided Care Provided: Adult Hospital Medicine"
--- NOTE | 2025-06-03 16:53 | Electrocardiogram Report ---
Test Reason : Blood Pressure : */* mmHG Vent. Rate : 126 BPM Atrial Rate : * BPM P-R Int : * ms QRS Dur : 64 ms QT Int : 300 ms P-R-T Axes : * -27 206 degrees QTcB Int : 434 ms Atrial fibrillation with rapid ventricular response Nonspecific ST and T wave abnormality Abnormal ECG When compared with ECG of 01-Mar-2024 10:47, Atrial fibrillation has replaced Sinus rhythm Vent. rate has increased by 43 bpm Confirmed by Cruzito Raymundo ([id number]) on 06/03/2025 4:52:45 PM Referred By: REFERRED SELF Confirmed By: Cruzito Raymundo
[2025-06-04 00:27] VITALS: RESP 16
[2025-06-04 06:21] LABS: Hematocrit (blood only) 35.6 % (37.0-47.0); Hemoglobin 12.0 g/dL (12.0-16.0); Immature Granulocytes # (auto) 0.00 K/uL (0.01-0.20); Immature Granulocytes % (auto) 0.0 %; Mean Corpuscular Hemoglobin 32.3 pg (25.0-34.0); Mean Corpuscular Volume 96.0 fL (80.0-100.0); Platelet Count 107 K/uL (130-400); RDW Standard Deviation 47.6 fL (36.4-46.3); Red Blood Count 3.71 M/uL (4.20-5.40); White Blood Count 4.69 K/ul (4.8-10.8)
[2025-06-04 06:42] LABS: Anion Gap 6.0 (3-11); Blood Urea Nitrogen 15.0 mg/dl (6-23); Calcium 8.4 mg/dl (8.6-10.3); Carbon Dioxide 28.0 mmol/L (21-32); Chloride 109.0 mmol/L (98-107); Creatinine Clr Calc Pharmacy 43.4 ml/min; Glucose 104.0 mg/dl (70-99(Fasting)); Potassium 3.7 mmol/L (3.5-5.1); Sodium 143.0 mmol/L (136-145)
[2025-06-04 07:06] VITALS: O2SAT 96
[2025-06-04] MEDS: ACETAMINOPHEN 325 MG TAB PO PRN (07:32)
[2025-06-04] MEDS: LIDOCAINE 5% 1 PATCH TD STA (08:32)
[2025-06-04 10:16] VITALS: BP 169/74; TEMP 97.2
[2025-06-04 10:21] VITALS: PULSE 56
--- NOTE | 2025-06-04 11:27 | Discharge Summary ---
"Date of Service June 04, 2025 Admission HPI Per Admitting Provider Mrs. Addison is an 89-year-old female with PMH of CAD s/p PCI to LAD (2017), HLD, HTN, atrial fibrillation (on apixaban), situational anxiety, essential tremor, and urinary incontinence. She presented on 06/02 for lightheadedness, headache, nausea, upper back pain, and left shoulder/arm pain that started around noon today. Her pain lasted for approximately 1200 to 1430 when she arrived in the ED. She reports this occurs 2-3 times per year. She also reports she had a brief episode of chest palpitations earlier today. No SOB at rest. No GABRIEL. Patient reports that her left chest pain/shoulder pain was rated at 9 out of 10 at its worst, and it did radiated down her left arm. While she is chest pain- free at time of admission, she is still having numbness and tingling going down the left arm. She reports the distribution of her pain is similar to the pain she fell back in August 2017 (aching and tight sensation in her mid upper back with posterior headache at rest) at that time, she underwent a cardiac catheterization for presumed NSTEMI. Patient reports she took her regular morning medicines today, including her Eliquis. The only recent change in medications was that her losartan was doubled in May. She was also switched off of metoprolol and started on propranolol this fall due to resting tremors; this was coordinated by both cardiology and neurology (see most recent notes). Patient follows with Dr. Galvez (Cardiology). She denies smoking, tobacco use, or recent alcohol use. No supplemental oxygen at baseline or CPAP at night. No sick contacts to her knowledge. Patient's SpO2 was 99% on 2 LNC at time of admission; vitals otherwise stable (heart rate converted to NSR at 61 BPM). ED course: Aspirin 324 mg p.o. Acetaminophen 1000 mg IV Diltiazem 15 mg IV Plasma-Lyte 1000 mL IV Lidocaine patch ROS: Patient endorses headache (resolved), lightheadedness/dizziness (resolved), chest pain, chest palpitations, left shoulder pain, and numbness/tingling going down the left arm. Patient denies fever, chills, night-sweats, SOB at rest, GABRIEL, pleuritic CP, abdominal pain, N/V/D, changes in urinary/bowel habits, blood in the urine/stool, or melena. Admission Exam Per Admitting Provider Physical Exam Physical Exam: General: no acute distress; pleasant affect; anxious; family at bedside; non- toxic appearing; cooperative; frail-appearing; SpO2 99% on 2L NC HEENT: normocephalic, atraumatic; PERRLA; vision intact; hard of hearing Neck: supple; trachea midline; patient demonstrates ability to shrug shoulders against resistance without eliciting pain Skin: warm, dry without signs of tenting; no cyanosis; no rashes, bruising, lesions, or erythema noted CV: chest wall NTP; no rashes or bruising appreciated on the chest wall or left flank; RR around 60 bpm; S1/S2 normal; no murmurs/rubs/gallops; pulses intact and symmetric at radial, DP, and PT Lungs: no acute respiratory distress; symmetrical chest wall expansion; clear breath sounds across all lung romero w/o adventitious sounds; no wheezing ABD: Soft, NTP; BS present; no rebound/guarding; no distention MSK: no tics or fasciculations; no edema noted in the LEs b/l, nonerythematous; 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 fib w/ RVR, and NSTEMI Discharge Exam Constitutional WD/WN, vitals as above Eyes + anicteric sclerae and EOM intact bilaterally Respiratory normal respiratory effort, lungs clear to auscultation Cardiovascular Rate/Rhythm: regular rate and regular rhythm Heart Sounds: normal S1 and normal S2; no murmur Extremities: no edema Gastrointestinal (Abdomen) Percussion/Palpation: abdomen soft; abdomen nontender Skin no rashes, warm and dry Psychiatric Eye Contact: good eye contact Speech: normal rate/rhythm/volume of speech Thought Process: goal directed thought process and linear/logical thought process Discharge Data Allergies Allergy/AdvReac Type Severity Reaction Status Date / Time adhesive Allergy Mild MAKES SKIN Verified 05/03/25 09:52 SORE atorvastatin Allergy Mild COUGH Verified 05/03/25 09:52 levothyroxine Allergy Mild GENERIC Verified 05/03/25 09:52 MADE HER DIZZY Consultations 06/02/25 17:44 ED Decision to Admit Stat 06/02/25 20:35 Consult Cardiology Routine 06/04/25 09:42 Consult [facility] child day care provider Stat Ordered Studies 06/02/25 14:51 CT head/brain wo con Stat Hospital Course (1) Non-ST elevation AL (NSTEMI): (2) Hypertension: (3) Hyperlipidemia: (4) Coronary artery disease: (5) Atrial fibrillation with rapid ventricular response: (6) Elevated troponin: Plan This patient is an 89-year-old female with PMH of CAD s/p PCI to LAD (2017) and PAF (on apixaban) who presented on 06/02 for lightheadedness, nausea, headache, and left shoulder and arm pain. Found to be in atrial fibrillation with RVR on arrival. #Atrial fibrillation with RVR | elevated troponin EKG on arrival revealed atrial fibrillation with RVR Converted back to NSR after diltiazem 15 mg IV x 1 Rate controlled at time of admission Troponin elevated 150 -> 350; Though 350.2 is the peak and is now trending downwards x2. Last echocardiogram/04/2023 revealed LVEF at >70% Repeat echocardiogram ordered. EF was 60-65% and wall motion is normal, mild aortic and mitral regurg, right ventricular systolic pressure elevated at 40- 50mmHg, inferior vena cava is mildly dilated Cardiology consult appreciated Known history of CAD; given patient's symptoms resolved after she she converted back to a NSR, suspect her cardiac pain was linked to being in A-fib with RVR While NSTEMI/ACS remains within the differential, we will plan to continue patient on Eliquis for now Would only convert from Eliquis to heparin drip for potential catheterization if recurrence of back/shoulder pain while in NSR Recommend starting patient on amiodarone drip should patient convert back to A- fib with RVR Continuous telemetry monitoring while inpatient -Per cardiology, will start patient with Eliquis 2.5mg BID (due to age >80 and weight <60kg.), Plavix 75mg, and pantoprazole 40mg for home. Told patient and patient's daughter to discontinue taking her aspirin. -Follow-up with Cardiology within a week or two. -Follow up with PCP in the next week or two to monitor symptoms. #CAD s/p REYNA Admission to [facility] August 27, 2017; patient underwent a cardiac catheterization for presumed ACS/NSTEMI at that time Note: Review of patient's EKG from 2018 revealed NSR at the time #HLD Continue atorvastatin Lipid panel came back unremarkable. LDL is 25. 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 Propanol was held due to low HR. Gave one 0.1mg dose of clonidine due to patient's BP being 196/80. BP is now 169/74 (06/04 @ 10:38AM). Gave one dose of amlodipine 5mg last night (06/02/25), then gave 5mg of amlodipine this AM. -At home will do amlodipine 2.5mg HS to help with the elevated BP we saw in the hospital. Disposition: Admit to PCU telemetry VTE PPx: Eliquis Total Time Total Time Spent Total Time Spent (In Minutes): as per attending Discharge Plan Discharge Items Patient Disposition: Home - Self-Care Reason For Visit: AFIB RVR? NSTEMI Discharge Diagnosis: A.Fib RVR, NSTEMI Condition on Discharge: Fair Activity: Resume your previous activity Non-emergency contact: Primary Care Provider and Putty Remover Call non-emergency contact if: your symptoms worsen, your pain is not controlled and your temperature is above 101.5 Follow-up/Referrals: Chad Cohen MD [Primary Care Provider] - Diet: Heart Healthy Addtl Attending Provider Instructions: You were admitted into the hospital for lightheadedness, nausea, headache, and left shoulder and arm pain. We found on the heart monitor you were having a heart attack along with having a. fib. We provided a medication, diltiazem, to help control the rate of your heart. After the medication was administered your heart got out of a.fib and went back to normal. We also provided imaging of your heart with an ultrasound and found that you were not having any heart failure. During your stay we saw your blood pressure was high so we also administered medication to help control your blood pressure. Please follow-up with your PCP within a week and Cardiology in the next week or two to monitor your symptoms and blood pressure. New Medication -Plavix 75mg take once daily. -Amlodipine 2.5mg take one tablet at night. -Pantoprazole 40mg once daily. Stop -Stop taking your aspirin CONTACT YOUR PRIMARY CARE PROVIDER if you experience any of the following: Worsening of symptoms Fever, chills, or fatigue Difficulty following your treatment plan, or difficulty taking medications CALL 911 OR GO TO THE EMERGENCY DEPARTMENT if you experience any of the following: Sudden, severe abdominal pain or nausea/vomiting Severe chest pain, or chest pain that radiates (moves) to your jaw or arm Sudden, severe shortness of breath or difficulty breathing Thank you for allowing us to participate in your care. Pending Studies at Discharge: No Stand-Alone Forms: My [facility], Smoking Cessation Medications and DC Order Prescriptions: New clopidogrel [Plavix] 75 mg tablet 75 mg PO DAILY 30 Days Qty: 30 1RF pantoprazole 40 mg tablet,delayed release (DR/EC) 40 mg PO DAILY 30 Days Qty: 30 0RF amlodipine 2.5 mg tablet 2.5 mg PO HS 30 Days Qty: 30 0RF Continued Eliquis 2.5 mg tablet 2.5 mg PO BID Qty: 180 3RF rosuvastatin 20 mg tablet 20 mg PO HS Qty: 90 3RF losartan 50 mg tablet 50 mg PO DAILY Qty: 90 3RF nitroglycerin [Nitrostat] 0.4 mg tablet, sublingual 0.4 mg Sublingual UD PRN (Reason: Chest Pain) Qty: 20 2RF Rx Instructions: Can repeat in 5 minutes and 10 minutes if still with chest pain. Fish Oil 120-180-500 mg capsule 1 cap PO DAILY polyethylene glycol 3350 [Miralax] 17 gram/dose powder 8.5 gm PO DAILY PRN (Reason: Constipation) propranolol 60 mg capsule,extended release 24 hr 60 mg PO DAILY Qty: 90 2RF lorazepam 0.5 mg tablet 0.5 mg PO DAILY PRN (Reason: anxiety) Qty: 4 0RF Rx Instructions: take one at the time of flight; may repeat in one hour if needed; max 2 per flight multivitamin Tablet 1 tab PO DAILY cholecalciferol (vitamin D3) [Vitamin D3] 2,000 unit Tablet 2,000 unit PO DAILY glucosamine-chondroitin 167-133 mg Capsule 1 cap PO DAILY PreserVision AREDS 7,160-113-100 [id number] tablet 2 tab PO DAILY Discontinued aspirin 81 mg Tablet,Chewable 81 mg PO QAM Qty: 0 Discharge Orders: Discharge Order (Routine); Ordered 06/04/25 Ordered By: Cuate Sanches Admission Data Admit Date/Time: 06/02/25 18:15 Attending Provider: Austin Moseley Admit Provider: Sandor Burleson Primary Care Provider: Chad Cohen Other Providers: Sandor Burleson; Shabbir Stack Other Interventions: Discharge Summary Assessment (RN) Last Done: 06/04/25 10:38 Resident Activity Tracking Resident Involvement: Resident Care Provided Care Provided: Adult Hospital Medicine"
[2025-06-04] MEDS ORDERED: REMOVE LIDODERM PATCH SCH (21:00)
== END 2025-06-04 11:40 | disposition home or self-care (01) | DRG 281 ==
LOC: ED 14:37 → 4W 18:15 → SUATTDRO 18:15 → 4W 20:31